=== PATIENT | male | born 1980 | race Caucasian/White ===

== ENCOUNTER → 2016-11-22 | Outpatient (CLI) | payer OTHER ==
[~2016-11-22] MED LIST: METHACHOLINE KIT (J7674) INH ONE
--- NOTE | 2016-11-22 11:02 | PFTRPT ---
Tech: Alicia MARRERO RRT Age: 35 Sex: Male Race: Black Height: 74.00 Inches Weight: 232.00 Lbs BSA: 2.31 Diagnosis: R06.02 METHACHOLINE CHALLENGE REPORT: ORDERING PROVIDER: LIA Sagastume DATE OF SERVICE: 11/22/16 INTERPRETATION: The study was of excellent technical quality. Under protocol, methacholine was administered. Data acquisition is somewhat hampered by cough. At a dose of 2.5 mg (13.8575 CDUs), a 39% decline in the FEV1 was noted. The PC20 of 0.62 is significant. Flow rates returned to baseline post bronchodilator administration. IMPRESSION: Positive methacholine challenge study. MTDD
== END ==
LOC: M CARPUL 09:59
PROVIDERS: ATTEND Nurse Practitioner Adult Health
DX: R06.02 Shortness of breath (principal)
CPT/HCPCS: 94070; J7674

== ENCOUNTER 2017-07-13 14:42 | Emergency (ER) | payer OTHER ==
[2017-07-13 15:27] LABS: BASO % 0.4 % (0.0-1.0); EOS # 0.2 10^3/uL (0.0-0.50); EOS % 4.3 % (0.0-3.0); HEMATOCRIT 38.6 % (42.0-52.0); HEMOGLOBIN 13.2 g/dl (13.5-17.5); IMMATURE GRANULOCYTE % 0.2 % (0-3.0); LYMPH # 1.7 10^3/uL (1.5-4.5); LYMPH % 34.3 % (24.0-44.0); MEAN CORPUSCULAR HEMOGLOBIN 30.8 pg (27.0-33.0); MEAN CORPUSCULAR HGB CONC 34.2 g/dl (32.0-36.5); MONO # 0.5 10^3/uL (0.0-0.8); MONO % 9.7 % (0.0-5.0); NEUTROPHILS # 2.5 10^3/uL (1.8-7.7); NEUTROPHILS % 51.1 % (36.0-66.0); PLATELET COUNT, AUTOMATED 170 10^3/uL (150-450); RED BLOOD COUNT 4.29 10^6/uL (4.30-6.10); WHITE BLOOD COUNT 4.9 10^3/uL (4.0-10.0)
[2017-07-13 15:41] LABS: ANION GAP 5 MEQ/L (8-16); BLOOD UREA NITROGEN 15 MG/DL (7-18); CALCIUM LEVEL 8.6 MG/DL (8.5-10.1); CARBON DIOXIDE LEVEL 27 MEQ/L (21-32); CHLORIDE LEVEL 108 MEQ/L (98-107); CK-MB VALUE MASS 2.7 NG/ML (<3.6); CPK CREATINE PHOSPHOKINASE 553 U/L (39-308); CREATININE FOR GFR 1.22 MG/DL (0.70-1.30); GLOMERULAR FILTRATION RATE > 60.0 (>60); GLUCOSE, FASTING 93 MG/DL (70-100); MB/CK RELATIVE INDEX 0.48 (< OR =4); POTASSIUM SERUM 3.6 MEQ/L (3.5-5.1); SODIUM LEVEL 140 MEQ/L (136-145); TROPONIN I < 0.02 NG/ML (< 0.10)
[2017-07-13] MEDS: ONDANSETRON 4MG/2ML VIAL (J2405) IV (16:01)
[2017-07-13] MEDS: MORPHINE 2 MG/ML 1ML SYRINGE (J2270) IV (16:02)
== END 2017-07-13 16:40 | disposition home or self-care (01) ==
LOC: M ED 14:42
DX: R07.89 Other chest pain (principal); R00.1 Bradycardia, unspecified; J45.909 Unspecified asthma, uncomplicated; Z82.49 Family history of ischemic heart disease and other diseases of the circulatory system; Z79.899 Other long term (current) drug therapy
CPT/HCPCS: J2405

== ENCOUNTER 2018-02-20 19:14 | Inpatient (IN) | payer OTHER ==
[2018-02-20] MEDS ORDERED: PROPOFOL 1,000 MG/100 ML VIAL As Ordered ×2 (19:19→20:36)
[2018-02-20] MEDS: SODIUM BICARBONATE 150 MEQ in D5W 1,000 ML IV (20:00)
[2018-02-20] MEDS: POTASSIUM CHLORIDE 10 MEQ SR TABLET PO (20:01)
[2018-02-20] MEDS: CHARCOAL ACTIVATED LIQUID 25 GM/120 ML BTL PO (20:01)
[2018-02-20] MEDS ORDERED: SODIUM BICARBONATE 8.4% INJ 50 ML SYRINGE As Ordered (20:05)
[2018-02-20 20:15] LABS: BASO % 0.9 % (0.0-1.0); EOS # 0.2 10^3/uL (0.0-0.50); HEMATOCRIT 43.2 % (42.0-52.0); HEMOGLOBIN 14.3 g/dl (13.5-17.5); IMMATURE GRANULOCYTE % 0.2 % (0-3.0); LYMPH # 1.7 10^3/uL (1.5-4.5); LYMPH % 37.3 % (24.0-44.0); MEAN CORPUSCULAR HEMOGLOBIN 30.5 pg (27.0-33.0); MEAN CORPUSCULAR HGB CONC 33.1 g/dl (32.0-36.5); MEAN CORPUSCULAR VOLUME 92.1 fl (80.0-96.0); MONO # 0.4 10^3/uL (0.0-0.8); MONO % 8.2 % (0.0-5.0); NEUTROPHILS # 2.2 10^3/uL (1.8-7.7); NEUTROPHILS % 48.4 % (36.0-66.0); PLATELET COUNT, AUTOMATED 196 10^3/uL (150-450); RED BLOOD COUNT 4.69 10^6/uL (4.30-6.10); RED CELL DISTRIBUTION WIDTH 12.9 % (11.5-14.5); WHITE BLOOD COUNT 4.6 10^3/uL (4.0-10.0)
[2018-02-20 20:21] LABS: ABG HCO3 22.9 MEQ/L (22.0-26.0); ABG O2 SATURATION 99.2 % (95.0-99.0); ABG PARTIAL PRESSURE CO2 44.2 mmHg (35.0-45.0); ABG PARTIAL PRESSURE O2 186.2 mmHg (75.0-100.0); ABG TOTAL CO2 24.3 MEQ/L (22.0-29.0); ABG pH (ARTERIAL) 7.333 UNITS (7.350-7.450)
[2018-02-20 20:26] LABS: ALBUMIN 3.7 GM/DL (3.2-5.2); ALBUMIN/GLOBULIN RATIO 1.16 (1.00-1.93); ALKALINE PHOSPHATASE 67 U/L (45-117); ALT/SGPT 19 U/L (12-78); ANION GAP 7 MEQ/L (8-16); AST/SGOT 19 U/L (7-37); BILIRUBIN,DIRECT 0.2 MG/DL (0.0-0.2); BILIRUBIN,TOTAL 0.5 MG/DL (0.2-1.0); BLOOD UREA NITROGEN 10 MG/DL (7-18); CALCIUM LEVEL 8.5 MG/DL (8.5-10.1); CARBON DIOXIDE LEVEL 27 MEQ/L (21-32); CHLORIDE LEVEL 108 MEQ/L (98-107); CREATININE FOR GFR 1.42 MG/DL (0.70-1.30); ETHYL ALCOHOL (ETHANOL) 0.058 % (0.000-0.010); GLOMERULAR FILTRATION RATE > 60.0 (>60); GLUCOSE, FASTING 74 MG/DL (70-100); POTASSIUM SERUM 3.8 MEQ/L (3.5-5.1); SALICYLATE LEVEL < 1.7 MG/DL (5.0-30.0); SODIUM LEVEL 142 MEQ/L (136-145); TOTAL PROTEIN 6.9 GM/DL (6.4-8.2)
[2018-02-20 20:27] LABS: ACETAMINOPHEN LEVEL < 2.0 UG/ML (10.0-30.0)
[2018-02-20 20:35] LABS: AMPHETAMINES LEVEL URINE NEGATIVE (NEGATIVE); BARBITURATES URINE NEGATIVE (NEGATIVE); BENZODIAZEPINES URINE NEGATIVE (NEGATIVE); CANNABINOIDS URINE NEGATIVE (NEGATIVE); COCAINE METABOLITE URINE NEGATIVE (NEGATIVE); METHADONE URINE NEGATIVE (NEGATIVE); OPIATES URINE NEGATIVE (NEGATIVE); PHENCYCLIDINE URINE NEGATIVE (NEGATIVE)
[2018-02-20 20:55] LABS: OSMOLALITY SERUM 303 MOSM/KG (275-295)
[2018-02-20] MEDS: PROPOFOL 1,000 MG in APPROPRIATE DILUENT 1 EA IV (22:22)
[2018-02-20 22:51] LABS: ABG BASE EXCESS -1.8 (-2.0-2.0); ABG HCO3 23.5 MEQ/L (22.0-26.0); ABG O2 SATURATION 99.6 % (95.0-99.0); ABG PARTIAL PRESSURE CO2 41.6 mmHg (35.0-45.0); ABG PARTIAL PRESSURE O2 212.4 mmHg (75.0-100.0); ABG TOTAL CO2 24.7 MEQ/L (22.0-29.0); ABG pH (ARTERIAL) 7.369 UNITS (7.350-7.450)
[2018-02-20] MEDS ORDERED: SUCCINYLCHOLINE 100 MG/5 ML SYRINGE (J0330) (23:48)
[2018-02-20] MEDS ORDERED: ETOMIDATE INJ 20MG/10ML VIAL (23:48)
[2018-02-21] MEDS: PROPOFOL 1,000 MG in APPROPRIATE DILUENT 1 EA IV ×4 (00:38→06:42)
[2018-02-21] MEDS: MIDAZOLAM INJ 2 MG/2 ML VIAL (J2250) IV (03:11)
[2018-02-21 05:23] LABS: HEMATOCRIT 39.2 % (42.0-52.0); HEMOGLOBIN 13.1 g/dl (13.5-17.5); MEAN CORPUSCULAR HEMOGLOBIN 30.7 pg (27.0-33.0); MEAN CORPUSCULAR HGB CONC 33.4 g/dl (32.0-36.5); MEAN CORPUSCULAR VOLUME 91.8 fl (80.0-96.0); PLATELET COUNT, AUTOMATED 169 10^3/uL (150-450); RED BLOOD COUNT 4.27 10^6/uL (4.30-6.10); WHITE BLOOD COUNT 7.8 10^3/uL (4.0-10.0)
[2018-02-21 05:49] LABS: ALBUMIN 3.1 GM/DL (3.2-5.2); ALBUMIN/GLOBULIN RATIO 1.03 (1.00-1.93); ALKALINE PHOSPHATASE 58 U/L (45-117); ALT/SGPT 16 U/L (12-78); ANION GAP 8 MEQ/L (8-16); AST/SGOT 20 U/L (7-37); BILIRUBIN,TOTAL 0.4 MG/DL (0.2-1.0); BLOOD UREA NITROGEN 8 MG/DL (7-18); CALCIUM LEVEL 7.9 MG/DL (8.5-10.1); CARBON DIOXIDE LEVEL 26 MEQ/L (21-32); CHLORIDE LEVEL 109 MEQ/L (98-107); CREATININE FOR GFR 1.18 MG/DL (0.70-1.30); GLOMERULAR FILTRATION RATE > 60.0 (>60); GLUCOSE, FASTING 109 MG/DL (70-100); MAGNESIUM LEVEL 1.9 MG/DL (1.8-2.4); PHOSPHORUS LEVEL 2.7 MG/DL (2.5-4.9); POTASSIUM SERUM 3.6 MEQ/L (3.5-5.1); SODIUM LEVEL 143 MEQ/L (136-145); TOTAL PROTEIN 6.1 GM/DL (6.4-8.2)
[2018-02-21 06:17] LABS: ABG BASE EXCESS -1.5 (-2.0-2.0); ABG HCO3 23.9 MEQ/L (22.0-26.0); ABG O2 SATURATION 98.5 % (95.0-99.0); ABG PARTIAL PRESSURE CO2 42.6 mmHg (35.0-45.0); ABG STANDARD HCO3 23.2 MEQ/L (22.0-26.0); ABG TOTAL CO2 25.2 MEQ/L (22.0-29.0); ABG pH (ARTERIAL) 7.366 UNITS (7.350-7.450)
[2018-02-21] MEDS: PANTOPRAZOLE 40MG INJ (PROTONIX) (C9113) IV (08:31)
[2018-02-21] MEDS: ENOXAPARIN 40 MG/0.4 ML SYRINGE (J1650) SC (08:32)
[2018-02-21] MEDS: CHLORHEXIDINE GLUCONATE 0.12 % 15ML UDC (PERIDEX ORAL RINSE) MT (08:32)
[2018-02-21] MEDS ORDERED: IPRATROPIUM 0.5MG/ALBUTEROL 2.5MG INH SOL UD 3ML (DUONEB)(J7620) NEB (10:45)
[2018-02-21] MEDS ORDERED: traZODone 50 MG TAB PO (12:15)
== END 2018-02-21 16:22 | disposition home or self-care (01) | DRG 917 ==
LOC: M ED 19:14 → M ED INP 21:45 → M ICU 22:34
DX: T43.014A Poisoning by tricyclic antidepressants, undetermined, initial encounter (principal); G93.41 Metabolic encephalopathy; N17.9 Acute kidney failure, unspecified; J45.909 Unspecified asthma, uncomplicated; F32.9 Major depressive disorder, single episode, unspecified; Z79.899 Other long term (current) drug therapy

== ENCOUNTER 2018-02-22 11:31 | Inpatient (IN) | payer OTHER ==
[~2018-02-22] VITALS: Ht 188 cm; Wt 106.0 kg
[2018-02-22] MEDS: SERTRALINE HCL 50 MG TAB PO SCH (09:00)
[~2018-02-22 11:31] MED LIST changes: +ADV250INH INH; +FLON1SPR; +IBUP-1022 PO; +MAXA5TAB11 PO; +MED REC COMMENT; -METHACHOLINE KIT (J7674) INH ONE; +NICOTINE 21MG/24HR 1 EA TRANSDERMAL TD SCH; +NORT25CA2 PO; +VITA100066 PO
[2018-02-22] MEDS ORDERED: VITA200016 PO (11:58)
[2018-02-22] MEDS ORDERED: PROAAER10 INH (12:15)
[2018-02-22] MEDS ORDERED: VITA100066 PO (12:15)
[2018-02-22 13:23] LABS: HEMATOCRIT 39.7 % (42.0-52.0); HEMOGLOBIN 13.1 g/dl (13.5-17.5); MEAN CORPUSCULAR HEMOGLOBIN 30.7 pg (27.0-33.0); PLATELET COUNT, AUTOMATED 182 10^3/uL (150-450); RED BLOOD COUNT 4.27 10^6/uL (4.30-6.10); WHITE BLOOD COUNT 6.4 10^3/uL (4.0-10.0)
[2018-02-22 13:41] LABS: AMPHETAMINES LEVEL URINE NEGATIVE (NEGATIVE); BARBITURATES URINE NEGATIVE (NEGATIVE); BENZODIAZEPINES URINE NEGATIVE (NEGATIVE); CANNABINOIDS URINE NEGATIVE (NEGATIVE); COCAINE METABOLITE URINE NEGATIVE (NEGATIVE); METHADONE URINE NEGATIVE (NEGATIVE); OPIATES URINE NEGATIVE (NEGATIVE); PHENCYCLIDINE URINE NEGATIVE (NEGATIVE)
[2018-02-22 13:59] LABS: ACETAMINOPHEN LEVEL < 2.0 UG/ML (10.0-30.0); ALBUMIN 3.6 GM/DL (3.2-5.2); ALT/SGPT 18 U/L (12-78); BILIRUBIN,DIRECT 0.1 MG/DL (0.0-0.2); BILIRUBIN,TOTAL 0.5 MG/DL (0.2-1.0); BLOOD UREA NITROGEN 13 MG/DL (7-18); CALCIUM LEVEL 8.1 MG/DL (8.5-10.1); CARBON DIOXIDE LEVEL 29 MEQ/L (21-32); CHLORIDE LEVEL 109 MEQ/L (98-107); CREATININE FOR GFR 1.39 MG/DL (0.70-1.30); ETHYL ALCOHOL (ETHANOL) < 0.003 % (0.000-0.010); GLOMERULAR FILTRATION RATE > 60.0 (>60); GLUCOSE, FASTING 84 MG/DL (70-100); POTASSIUM SERUM 3.8 MEQ/L (3.5-5.1); SALICYLATE LEVEL < 1.7 MG/DL (5.0-30.0); SODIUM LEVEL 143 MEQ/L (136-145); TOTAL PROTEIN 6.6 GM/DL (6.4-8.2)
[2018-02-22] MEDS ORDERED: ACETAMINOPHEN TAB 650MG DOSE (2X325MG) PO PRN (14:30)
[2018-02-22] MEDS ORDERED: MAALOX 30 ML SUSP *UDC PO PRN (14:30)
[2018-02-22] MEDS ORDERED: MOM 30ML SUSPENSION UDC PO PRN (14:30)
[2018-02-22 15:11] VITALS: BP 142/90
--- NOTE | 2018-02-22 15:38 | HPEPDOC ---
[facility] Medical History & Physical Date of Admission Feb 22, 2018 History and Physical PCP: [facility] ATTENDING: Dr. Lauren Negron HPI: 37yoM admitted to [facility] for depressive disorder, being medically examined today. The pt was recently admitted to [facility] 02/20/18-02/21/18 related to TCA OD. No acute medical complaints today. Denies any fevers, chills, weakness, fatigue, CHANDRA, CP, SOB, cough, palpitations, abdominal pain, N/V/D or changes in bowel or bladder habits. PMHx: Anxiety depression TCA OD 02/20/18 Asthma PSHX: wisdom teeth extraction SOCHX: Resides in: [facility], from [place] Marital Status: Kids: none Employment: active duty Tobacco use: denies ETOH: denies Illicit Drugs: Denies IV Drug Use: Denies Tattoos done unprofessionally: Denies FAMHX: Mother: Alive, Myasthenia gravis Father: Alive, heart disease Siblings: 2 brothers Alive, well Children: none Unexpected deaths due to medical reasons: None. ROS: As noted in HPI, otherwise 11pt ROS of systems reviewed and unremarkable. PE: GEN: 37yoM, appears stated age. Well-nourished, well developed. No acute distress. Alert and oriented x 3. Pleasant, interactive. HEENT: Normocephalic, atraumatic. Pupils are equal, round, and reactive to light. Extraocular movements are intact. No nystagmus appreciated. Sclera are nonicteric. Conjunctiva without injection. Nose midline. Nasal turbinates without bogginess. EACs both patent BL. TMs both visualized and marquez with good cone of light, no bulging or erythema. No facial asymmetry. Moist mucous membranes. Dentition fair. Pharynx pink and moist, no cobblestoning. Neck supple, trachea midline. No lymphadenopathy or thyromegaly appreciated. CHEST: Regular rate and rhythm, +S1, +S2 LUNGS: Clear to auscultation bilaterally. No wheezes, rales, or rhonchi. Breathing appears symmetric and easy. Patient is speaking in full sentences. No accessory muscle use. ABD: Round, soft, non-tender, non-distended. +Bowel sounds throughout. No rebound or guarding. No costovertebral angle tenderness. EXT: Pulses 2+ bilaterally dorsalis pedis and radial. No lower extremity edema appreciated. SKIN: Hope, dry, warm. Capillary refill <2sec. No rashes. NEURO: Alert and oriented x 3. Cranial nerves III-XII are intact. No focal deficits appreciated. EKG:pending A&P: 37yoM admitted to [facility] for depressive disorder 1. Psych. Plan per Psychiatry. Obtain baseline EKG to assure the safety of ps ychiatric medications as they can prolong the QT interval. 2. Elevated SCr. Recent MILDRED noted 02/20/18 admission. Unknown baseline. SCr 1.18 at time of D/C 02/21/18. SCr 1.38. Recheck in AM. 3. Asthma. Continue albuterol HFA as needed. 4. Follow up with PCP on discharge. 5. Staff member Susan ORTEGA present throughout exam. Vital Signs Vital Signs Date Time Temp Pulse Resp B/P (MAP) Pulse Ox O2 Delivery O2 Flow Rate FiO2 02/22/18 11:57 97.8 75 18 123/77 (92) 100 Room Air Laboratory Data Labs 24H Laboratory Tests 2 02/22/18 12:41: Nucleated Red Blood Cells % (auto) 0.0, Anion Gap 5L, Glomerular Filtration Rate > 60.0, Calcium Level 8.1L, Aspartate Amino Transf (AST/SGOT) 16, Alanine Aminotransferase (ALT/SGPT) 18, Alkaline Phosphatase 82, Total Bilirubin 0.5, Direct Bilirubin 0.1, Total Protein 6.6, Albumin 3.6, Albumin/Globulin Ratio 1.20, Thyroid Stimulating Hormone (TSH) 2.640, Salicylates Level < 1.7L, Urine Amphetamines Screen NEGATIVE, Urine Benzodiazepines Screen NEGATIVE, Urine Opiates Screen NEGATIVE, Urine Methadone Screen NEGATIVE, Acetaminophen Level < 2.0L, Urine Barbiturates Screen NEGATIVE, Urine Phencyclidine Screen NEGATIVE, Urine Cocaine Metabolite Screen NEGATIVE, Urine Cannabinoids Screen NEGATIVE, Ethyl Alcohol Level < 0.003 CBC/BMP Laboratory Tests 02/22/18 12:41 Red Blood Count 4.27 L, Mean Corpuscular Volume 93.0, Mean Corpuscular Hemoglobin 30.7, Mean Corpuscular Hemoglobin Concent 33.0, Red Cell Distribution Width 13.3 Home Medications Scheduled Cholecalciferol (Vitamin D) 1,000 Unit Tab, 1,000 UNIT PO DAILY Scheduled PRN Albuterol Sulfate (Proair Hfa) 108 Mcg/Act Aer, 2 PUFF INH Q4H PRN for SHORTNESS OF BREATH Allergies Coded Allergies: No Known Allergies (Unverified , 11/18/16) Bridget Schafer Feb 22, 2018 15:38
[2018-02-22] MEDS ORDERED: ALBUTEROL 90 MCG/ACT 8GM HFA INHALER INH PRN (15:45)
[2018-02-23 06:38] LABS: HEMATOCRIT 41.5 % (42.0-52.0); HEMOGLOBIN 13.5 g/dl (13.5-17.5); MEAN CORPUSCULAR HEMOGLOBIN 30.4 pg (27.0-33.0); MEAN CORPUSCULAR HGB CONC 32.5 g/dl (32.0-36.5); MEAN CORPUSCULAR VOLUME 93.5 fl (80.0-96.0); PLATELET COUNT, AUTOMATED 178 10^3/uL (150-450); RED BLOOD COUNT 4.44 10^6/uL (4.30-6.10); WHITE BLOOD COUNT 6.8 10^3/uL (4.0-10.0)
[2018-02-23 06:44] VITALS: BP 133/84
[2018-02-23 06:51] LABS: BLOOD UREA NITROGEN 14 MG/DL (7-18); CALCIUM LEVEL 8.5 MG/DL (8.5-10.1); CARBON DIOXIDE LEVEL 28 MEQ/L (21-32); CHLORIDE LEVEL 107 MEQ/L (98-107); CREATININE FOR GFR 1.34 MG/DL (0.70-1.30); GLOMERULAR FILTRATION RATE > 60.0 (>60); GLUCOSE, FASTING 91 MG/DL (70-100); SODIUM LEVEL 143 MEQ/L (136-145)
[2018-02-23] MEDS: SERTRALINE HCL 50 MG TAB PO SCH (09:00)
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
[2018-02-23 18:17] VITALS: BP 128/76
[2018-02-24 06:29] VITALS: BP 128/94
[2018-02-24 07:27] LABS: BLOOD UREA NITROGEN 10 MG/DL (7-18); CALCIUM LEVEL 8.5 MG/DL (8.5-10.1); CARBON DIOXIDE LEVEL 31 MEQ/L (21-32); CHLORIDE LEVEL 102 MEQ/L (98-107); CREATININE FOR GFR 1.27 MG/DL (0.70-1.30); GLOMERULAR FILTRATION RATE > 60.0 (>60); GLUCOSE, FASTING 88 MG/DL (70-100); POTASSIUM SERUM 3.6 MEQ/L (3.5-5.1); SODIUM LEVEL 139 MEQ/L (136-145)
[2018-02-24 08:37] VITALS: BP 128/80
[2018-02-24] MEDS: SERTRALINE HCL 50 MG TAB PO SCH (09:00)
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
[2018-02-24 18:00] VITALS: BP 118/60
[2018-02-25 06:34] VITALS: BP 138/98
[2018-02-25] MEDS: SERTRALINE HCL 50 MG TAB PO SCH (08:08)
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
[2018-02-25 18:00] VITALS: BP 126/79
[2018-02-26 06:38] VITALS: BP 135/81
[2018-02-26] MEDS: SERTRALINE HCL 50 MG TAB PO SCH (08:34)
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
[2018-02-26 18:00] VITALS: BP 122/57
[2018-02-27 06:41] VITALS: BP 138/80
[2018-02-27] MEDS: SERTRALINE HCL 50 MG TAB PO SCH (08:46)
[2018-02-27 18:00] VITALS: BP 123/75
[2018-02-28 07:00] VITALS: BP 132/68
--- NOTE | 2018-02-28 08:44 | MHDSPDOC ---
[facility] Discharge Summary Discharge Summary DATE OF ADMISSION: Feb 22, 2018 at 2:16 pm DATE OF DISCHARGE: Feb 28, 2018 DISCHARGE DIAGNOSES: 1. Depression Unspecified 2. R/O adjustment d/o with anxiety/depression REASON FOR ADMISSION: Patient is a 37 -year-old , AD, male, with no known previous psych history who [facility] after being referred by [facility] as pt just discharged from ICU s/p OD on 35 Nortriptyline 25mg on 02/21/18. Pt was seen for consult during his ICU admission in which he was not cleared by myself to be discharged but medical discharged him home without contacting me after sitter d/c as pt felt safe in the hospital. When pt seen in ICU for consult he stated per consult note that "he took OD of nortriptyline as SA after an argument with his . He states that lately his marriage has been difficult as he and his are arguing frequently. States he's been going to a therapist and psychiatrist at [facility] w [facility] has been helpful during this time but just impulsively took the OD 02/19 as he was feeling depressed in the moment. Denies overt depression currently, states his has been supportive since OD, and states he's glad he's alive today and regrets his OD. Denies SI/HI, hallucinations, delusions and states he will not harm himself and does not need a sitter anymore. States he feels safe in the hospital. States he would like marriage counseling in the future as he thinks it will be beneficial for his marriage. Denies problems at work and states things have been going well." Pt seen at [facility] at sent to [facility] ED yesterday as [facility] concerned regarding pt recent OD as it required intubation/ICU treatment, and was potentially lethal (35 TCAs). In ED pt denies SI since his OD. Pt seen and continues to deny SI, remorse over OD, and states he will never do anything like that again as he has learned his lesson and doesn't want to . States things have been difficult within his marriage and his never listens to him, "take the time to get to know me," States he's asked his to go to marital counseling with him in the past but she refuses. States she has mental health problems, history of SA but refuses to get help for it. States that when he took OD he did it in front of his while they were fighting and states she "told me to do it." States he didn't think it would be harmful to him as he didn't know the lethality of TCAs and now realizes who serious his OD was and completely regrets it, glad to be alive today. Future oriented and greatly looking forward to going to [place] next month [place] train for a month as he enjoys i t. Encouraged next time he and his are fighting that if things get bad and feeling overly stressed to leave the fight and go do something else like run, walk, go to gym, go to friends, etc... He agrees and will do. CONSULTANTS INVOLVED: none TREATMENT AND PROGRESS ON THE UNIT : Pt was admitted to [facility], seen for psychiatric assessment and and started on zoloft 50mg daily that he found beneficial for his mood and tolerated well. He was provided trazodone 50mg qhs prn insomnia. He attended groups daily during his stay. His symptoms improved with treatment. On day of discharge he denied depression, anxiety, insomnia, SI/HI, hallucinations, delusions. He was discharged home after [facility] meeting with follow-up at [facility]. He felt safe for discharge. DISCHARGE ASSESSMENT: Pt seen and states that his mood is good. States he's tolerating his zoloft and finding it beneficial. States things are getting better between the two of them and she's being supportive which is good. States he slept well last night. He is attending groups and finding them helpful. He denies depression, anxiety, insomnia, SI/HI, hallucinations, delusions. Pt feels safe to be discharged home today with his [facility]. MENTAL STATUS EXAMINATION ON DISCHARGE: General Appearance: well groomed, appears stated age, hospital scrubs/clothing Build: average Demeanor: average Eye Contact: average Activity: average Behavior: cooperative Speech: clear, spontaneous, normal volume, reg/rate,rhythm,volume Mood: euthymic Mood good Affect: full, appropriate, congruent Thought Process: logical/linear, intact Thought Content (Delusions): none reported, denies SI, HI, AVH Thought Content (Other): none reported, appropriate Thought Content (Aggressive): none reported Perception (Hallucinations): none reported Perception (Other): none reported Cognition (Impairment of): none reported Cognition(Intelligence Est.): average Oriented: Awake, Alert, Oriented times three Insight: good Judgment: Good Psychosis: Denies MEDICATIONS ON DISCHARGE: trazodone 50mg qhs prn insomnia PLAN/FOLLOWUP ARRANGEMENTS: D/c home with [facility] with follow-up at [facility]. The amount of time spent in the coordination of care for this patient was approximately 30 minutes. Vital Signs/I&Os Vital Signs Date Time Temp Pulse Resp B/P (MAP) Pulse Ox O2 Delivery O2 Flow Rate FiO2 02/28/18 07:00 97.6 70 16 132/68 (89) 02/22/18 15:11 Room Air 02/22/18 11:57 100 Medications Scheduled Cholecalciferol (Vitamin D) 1,000 Unit Tab, 1,000 UNIT PO DAILY, (Reported) Sertraline Hcl (Sertraline HCl) 50 Mg Tab, 50 MG PO DAILY for mood, #10 Scheduled PRN Albuterol Sulfate (Proair Hfa) 108 Mcg/Act Aer, 2 PUFF INH Q4H PRN for SHORTNESS OF BREATH, (Reported) Trazodone HCl (Trazodone HCl) 50 Mg Tab, 50 MG PO QPM PRN for INSOMNIA for 30 Days, #10 Allergies Coded Allergies: No Known Allergies (Unverified , 11/18/16) JORGE ALBERTO MENDIETA DO Feb 28, 2018 8:44 am
[2018-02-28] MEDS ORDERED: TRAZ-160 PO (08:46)
[2018-02-28] MEDS ORDERED: SERT50TA PO (08:46)
[2018-02-28] MEDS: SERTRALINE HCL 50 MG TAB PO SCH (09:00)
== END 2018-02-28 11:50 | disposition home or self-care (01) | DRG 881 ==
LOC: M ED 11:31 → M ED INP 14:16 → M PSY 15:07
PROVIDERS: ADMIT Psychiatry & Neurology Psychiatry; ATTEND Psychiatry & Neurology Psychiatry
DX: F32.9 Major depressive disorder, single episode, unspecified (principal); Z91.5 Personal history of self-harm; J45.909 Unspecified asthma, uncomplicated; F43.23 Adjustment disorder with mixed anxiety and depressed mood

== ENCOUNTER → 2018-03-08 | Outpatient (CLI) | payer OTHER ==
[~2018-03-08] MED LIST changes: -NICOTINE 21MG/24HR 1 EA TRANSDERMAL TD SCH; +PROAAER10 INH; +PROHANCE 279.3MG/ML 15ML VIAL (A9576) As Ordered ONE; +PROHANCE 279.3MG/ML 5ML VIAL (A9576) As Ordered ONE; +SERT50TA PO; +TRAZ-160 PO; +VITA200016 PO
--- NOTE | 2018-03-08 12:56 | REP ---
MR BRAIN WITH CONTRAST: HISTORY: Left temporal lobe lesion. CONTRAST: ProHance 20 mL. A small 8 mm focus of mixed decreased and increased signal intensity is present in the anterior left temporal lobe. There is no surrounding edema or mass effect. This represents a cavernous hemangioma. A small developmental venous anomaly is present adjacent to the cavernous hemangioma. The developmental venous anomaly drains into the deep venous system. A single punctate focus of increased signal intensity on T2-weighted images is present in the subcortical white matter of the right parietal lobe. There is no acute intraparenchymal hemorrhage, infarct, or midline shift. The ventricular system is normal in appearance. There is no extracerebral collection. Mucosal thickening is present in the sphenoid sinus. IMPRESSION: 1. There is a small 8 mm left temporal lobe cavernous hemangioma with an associated adjacent developmental venous anomaly. 2. There is a single punctate focus of increased signal intensity in the subcortical white matter of the right parietal lobe. This is a nonspecific finding. Electronically Signed by Edvin Medellin MD 03/08/2018 01:25 P
== END ==
LOC: M RAD 09:59
PROVIDERS: ATTEND Family Medicine
DX: R93.0 Abnormal findings on diagnostic imaging of skull and head, not elsewhere classified (principal)
CPT/HCPCS: 70552; A9576

== ENCOUNTER 2018-03-21 10:34 | Inpatient (IN) | payer OTHER ==
[~2018-03-21] VITALS: Ht 188 cm; Wt 106.5 kg
[~2018-03-21 10:34] MED LIST changes: -PROHANCE 279.3MG/ML 15ML VIAL (A9576) As Ordered ONE; -PROHANCE 279.3MG/ML 5ML VIAL (A9576) As Ordered ONE
[2018-03-21 12:01] LABS: HEMOGLOBIN 13.5 g/dl (13.5-17.5); MEAN CORPUSCULAR HEMOGLOBIN 30.4 pg (27.0-33.0); MEAN CORPUSCULAR HGB CONC 32.9 g/dl (32.0-36.5); MEAN CORPUSCULAR VOLUME 92.3 fl (80.0-96.0); PLATELET COUNT, AUTOMATED 190 10^3/uL (150-450); RED BLOOD COUNT 4.44 10^6/uL (4.30-6.10); WHITE BLOOD COUNT 5.8 10^3/uL (4.0-10.0)
[2018-03-21 12:26] LABS: AMPHETAMINES LEVEL URINE NEGATIVE (NEGATIVE); BARBITURATES URINE NEGATIVE (NEGATIVE); BENZODIAZEPINES URINE NEGATIVE (NEGATIVE); CANNABINOIDS URINE NEGATIVE (NEGATIVE); COCAINE METABOLITE URINE NEGATIVE (NEGATIVE); METHADONE URINE NEGATIVE (NEGATIVE); OPIATES URINE NEGATIVE (NEGATIVE); PHENCYCLIDINE URINE NEGATIVE (NEGATIVE)
[2018-03-21 12:43] LABS: ACETAMINOPHEN LEVEL < 2.0 UG/ML (10.0-30.0); ALBUMIN 3.9 GM/DL (3.2-5.2); ALT/SGPT 29 U/L (12-78); BILIRUBIN,DIRECT 0.2 MG/DL (0.0-0.2); BILIRUBIN,TOTAL 0.6 MG/DL (0.2-1.0); BLOOD UREA NITROGEN 20 MG/DL (7-18); CALCIUM LEVEL 8.5 MG/DL (8.5-10.1); CARBON DIOXIDE LEVEL 26 MEQ/L (21-32); CHLORIDE LEVEL 106 MEQ/L (98-107); CREATININE FOR GFR 1.32 MG/DL (0.70-1.30); ETHYL ALCOHOL (ETHANOL) < 0.003 % (0.000-0.010); GLOMERULAR FILTRATION RATE > 60.0 (>60); GLUCOSE, FASTING 87 MG/DL (70-100); POTASSIUM SERUM 4.4 MEQ/L (3.5-5.1); SALICYLATE LEVEL < 1.7 MG/DL (5.0-30.0); SODIUM LEVEL 139 MEQ/L (136-145); TOTAL PROTEIN 7.1 GM/DL (6.4-8.2)
[2018-03-21] MEDS ORDERED: MOM 30ML SUSPENSION UDC PO PRN (15:00)
[2018-03-21] MEDS ORDERED: ACETAMINOPHEN TAB 650MG DOSE (2X325MG) PO PRN (15:00)
[2018-03-21] MEDS ORDERED: MAALOX 30 ML SUSP *UDC PO PRN (15:00)
[2018-03-21] MEDS ORDERED: traZODone 50 MG TAB PO PRN (15:00)
[2018-03-21 17:49] VITALS: BP 135/77
[2018-03-22 06:34] VITALS: BP 146/86
--- NOTE | 2018-03-22 09:24 | HPEPDOC ---
[facility] Medical History & Physical Date of Admission Mar 21, 2018 History and Physical PCP: [facility] ATTENDING: Dr. Lauren Negron HPI: 37yoM admitted to [facility] for depressive disorder, being medically examined today. No acute medical complaints today. Denies any fevers, chills, weakness, fatigue, CHANDRA, CP, SOB, cough, palpitations, abdominal pain, N/V/D or changes in bowel or bladder habits. PMHx: Anxiety depression H/O SI/HI H/O SA. TCA OD 02/20/18 TBI. Follows with TBI clinic [facility]. Asthma PSHX: wisdom teeth extraction SOCHX: Resides in: [facility], from [place] Marital Status: Kids: none Employment: active duty Tobacco use: denies ETOH: denies Illicit Drugs: Denies IV Drug Use: Denies Tattoos done unprofessionally: Denies FAMHX: Mother: Alive, Myasthenia gravis Father: Alive, heart disease Siblings: 2 brothers Alive, well Children: none Unexpected deaths due to medical reasons: None. ROS: As noted in HPI, otherwise 11pt ROS of systems reviewed and unremarkable. PE: GEN: 37yoM, appears stated age. Well-nourished, well developed. No acute distress. Alert and oriented x 3. Pleasant, interactive. HEENT: Normocephalic, atraumatic. Pupils are equal, round, and reactive to light. Extraocular movements are intact. No nystagmus appreciated. Sclera are nonicteric. Conjunctiva without injection. Nose midline. Nasal turbinates without bogginess. EACs both patent BL. TMs both visualized and marquez with good cone of light, no bulging or erythema. No facial asymmetry. Moist mucous membra shelia. Dentition fair. Pharynx pink and moist, no cobblestoning. Neck supple, trachea midline. No lymphadenopathy or thyromegaly appreciated. CHEST: Regular rate and rhythm, +S1, +S2 LUNGS: Clear to auscultation bilaterally. No wheezes, rales, or rhonchi. Breathing appears symmetric and easy. Patient is speaking in full sentences. No accessory muscle use. ABD: Round, soft, non-tender, non-distended. +Bowel sounds throughout. No rebound or guarding. No costovertebral angle tenderness. EXT: Pulses 2+ bilaterally dorsalis pedis and radial. No lower extremity edema appreciated. SKIN: [place], dry, warm. Capillary refill <2sec. No rashes. NEURO: Alert and oriented x 3. Cranial nerves III-XII are intact. No focal deficits appreciated. EKG: SINUS RHYTHM ST ELEVATION, PROBABLY EARLY REPOLARIZATION INF T ABN SIMILAR TO 07/13/17 Electronically Signed On 02-21-2018 9:12:37 EST by Mesha Contreras MRI Brain 1. There is a small 8 mm left temporal lobe cavernous hemangioma with an associated adjacent developmental venous anomaly. 2. There is a single punctate focus of increased signal intensity in the subcortical white matter of the right parietal lobe. This is a nonspecific finding. Electronically Signed by Edvin Medellin MD 03/08/2018 01:25 P A&P: 37yoM admitted to [facility] for depressive disorder 1. Psych. Plan per Psychiatry. EKG on file. 2. Elevated SCr. Baseline appears to be 1.1-1.3. SCr 1.32. Recheck in AM. Add renal U/S UA with reflex culture. Avoid nephrotoxic medications. 3. Asthma. Continue albuterol HFA as needed. 4. Follow up with PCP on discharge. 5. MRI Brain 03/08/18 with small 8 mm left temporal lobe cavernous hemangioma with an associated adjacent developmental venous anomaly. Would recommend to consider neurology consultation for any further recommendat ions. 6. Staff member Aayush present throughout exam. Vital Signs Vital Signs Date Time Temp Pulse Resp B/P (MAP) Pulse Ox O2 Delivery O2 Flow Rate FiO2 03/22/18 06:34 98.4 87 16 146/86 (106) Room Air 03/21/18 11:46 98 Laboratory Data Labs 24H Laboratory Tests 2 03/21/18 11:00: Nucleated Red Blood Cells % (auto) 0.0, Anion Gap 7L, Glomerular Filtration Rate > 60.0, Calcium Level 8.5, Aspartate Amino Transf (AST/SGOT) 44H, Alanine Aminotransferase (ALT/SGPT) 29, Alkaline Phosphatase 65, Total Bilirubin 0.6, Direct Bilirubin 0.2, Total Protein 7.1, Albumin 3.9, Albumin/Globulin Ratio 1.22, Thyroid Stimulating Hormone (TSH) 1.650, Salicylates Level < 1.7L, Urine Amphetamines Screen NEGATIVE, Urine Benzodiazepines Screen NEGATIVE, Urine Opiates Screen NEGATIVE, Urine Methadone Screen NEGATIVE, Acetaminophen Level < 2.0L, Urine Barbiturates Screen NEGATIVE, Urine Phencyclidine Screen NEGATIVE, Urine Cocaine Metabolite Screen NEGATIVE, Urine Cannabinoids Screen NEGATIVE, Ethyl Alcohol Level < 0.003 CBC/BMP Laboratory Tests 03/21/18 11:00 Red Blood Count 4.44, Mean Corpuscular Volume 92.3, Mean Corpuscular Hemoglobin 30.4, Mean Corpuscular Hemoglobin Concent 32.9, Red Cell Distribution Width 12.8 Home Medications Scheduled Cholecalciferol (Vitamin D) 1,000 Unit Tab, 1,000 UNIT PO DAILY Sertraline Hcl (Sertraline HCl) 50 Mg Tab, 50 MG PO DAILY for mood Scheduled PRN Albuterol Sulfate (Proair Hfa) 108 Mcg/Act Aer, 2 PUFF INH Q4H PRN for SHORTNESS OF BREATH Trazodone HCl (Trazodone HCl) 50 Mg Tab, 50 MG PO QPM PRN for INSOMNIA Allergies Coded Allergies: No Known Allergies (Unverified , 11/18/16) Bridget Schafer Mar 22, 2018 09:24
[2018-03-22] MEDS ORDERED: ALBUTEROL 90 MCG/ACT 8GM HFA INHALER INH PRN (09:30)
[2018-03-22] MEDS ORDERED: IBUPROFEN 600 MG TAB PO PRN (10:45)
--- NOTE | 2018-03-22 11:21 | MHHPEPDOC ---
General Date Of Admission: Mar 21, 2018 Legal Status: 9.39 Chief Complaint "My was threatening me and it just became too much." History of Present Illness HISTORY OF THE PRESENT ILLNESS: Patient is a 37 -year-old AAM, male, with a history of depression and SA via )D 02/21/18 who was admitted for depression and SI with plan to drink bleach and HI toward his secondary to marriage stress. Pt states his was threatening him, to harm him, to "take all my money," not letting him make his FDBH appts. States that her threats and agitation made him feel like he was going into a "dark place again" depressed with SI. Pt seen today and states he feels better b/c he's away from his . States he was scared of what he may do should he continue to be around her. States he put in a no contact order as doesn't want her to continue to cause problems in his life. Is now planning on divorce in the future as he thinks that's best for him. Denies current SI/HI, hallucinations, delusions. Feels safe here. Past Psychiatric History Previous Psychiatric Diagnosis: depression, insomnia Previous Psychiatric Admissions: [facility] 02/21/18 secondary depression and OD Suicide Attempts: 35 Nortriptyline 25mg on 02/21/18. Psychiatric Follow-up: [facility] Psychiatric medications: Past Medical History Medical Problems lt temporal hemangioma on Head MRI - medicine to consult neurology to evaluate Head Injury: No Seizures: No Hospitalizations: Yes Surgeries: Yes (wisdom teeth extraction) Family Medical/Psychiatric HX Medical Problems noncontributory Psychiatric Disorders: No Addiction: No Suicide Attemps/Completions: No Addiction History denies Social History Childhood: The patient was [place] "[place] over... 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 Social Support: family, Legal: denies Marital: , no kids Mental Status Examination General Appearance: well groomed, appears stated age, hospital scubs/clothing Build: average Demeanor: average Eye Contact: average Activity: average Behavior: cooperative Speech: clear, spontaneous, normal volume, reg/rate,rhythm,volume Mood: depressed Mood stressed Affect: constricted, flat, appropriate, congruent, anxious Thought Process: logical/linear, depressed, intact Thought Content (Delusions): none reported, denies SI, HI, AVH Thought Content (Other): none reported, appropriate Thought Content (Aggressive): none reported Perception (Hallucinations): none reported Perception (Other): none reported Cognition (Impairment of): none reported Cognition(Intelligence Est.): average Oriented: Awake, Alert, Oriented times three Insight: fair Judgment: Fair Psychosis: Denies Diagnoses Major depression recurrent, severe w/o psychosis Assessment Pt depressed with SI and plan to drink bleach and HI toward his due to ma rital stressors. Pt agreeable to starting zoloft 50mg daily for mood, risks/benefits discussed. [facility] working on half-way treatment in [place]. Initial Treatment Plan 1. Patient was admitted on a 939 status. 2. Complete history was obtained. 3. With patients permission, family will be contacted and database will be expanded. 4. Patients medication regimen will be reviewed and changed accordingly. 5. Patient will be provided with protected environment. 6. Patient will be treated with individual, group, and milieu therapies. 7. Patient will receive supportive psych-education. 8. Discharge planning will commence immediately. 9. Outpatient follow-up treatment will be strongly recommended. 10. The initial treatment plan will focus initially on: * Depression. * Risk for suicide. * Substance abuse. 11. zoloft 50mg daily ESTIMATED LENGTH OF STAY: 7-9 DAYS. TIME SPENT COUNSELING AND COORDINATING INITIAL CARE: 60 minutes. Vital Signs Vital Signs Date Time Temp Pulse Resp B/P (MAP) Pulse Ox O2 Delivery O2 Flow Rate FiO2 03/22/18 06:34 98.4 87 16 146/86 (106) Room Air 03/21/18 11:46 98 Laboratory Data 24H Labs Laboratory Tests 2 03/21/18 11:00: Nucleated Red Blood Cells % (auto) 0.0, Anion Gap 7L, Glomerular Filtration Rate > 60.0, Calcium Level 8.5, Aspartate Amino Transf (AST/SGOT) 44H, Alanine Aminotransferase (ALT/SGPT) 29, Alkaline Phosphatase 65, Total Bilirubin 0.6, Direct Bilirubin 0.2, Total Protein 7.1, Albumin 3.9, Albumin/Globulin Ratio 1.22, Thyroid Stimulating Hormone (TSH) 1.650, Salicylates Level < 1.7L, Urine Amphetamines Screen NEGATIVE, Urine Benzodiazepines Screen NEGATIVE, Urine Opiates Screen NEGATIVE, Urine Methadone Screen NEGATIVE, Acetaminophen Level < 2.0L, Urine Barbiturates Screen NEGATIVE, Urine Phencyclidine Screen NEGATIVE, Urine Cocaine Metabolite Screen NEGATIVE, Urine Cannabinoids Screen NEGATIVE, Et hyl Alcohol Level < 0.003 CBC/BMP Laboratory Tests 03/21/18 11:00 Red Blood Count 4.44, Mean Corpuscular Volume 92.3, Mean Corpuscular Hemoglobin 30.4, Mean Corpuscular Hemoglobin Concent 32.9, Red Cell Distribution Width 12.8 Medications Scheduled Cholecalciferol (Vitamin D) 1,000 Unit Tab, 1,000 UNIT PO DAILY, (Reported) Sertraline Hcl (Sertraline HCl) 50 Mg Tab, 50 MG PO DAILY for mood Scheduled PRN Albuterol Sulfate (Proair Hfa) 108 Mcg/Act Aer, 2 PUFF INH Q4H PRN for SHORTNESS OF BREATH, (Reported) Trazodone HCl (Trazodone HCl) 50 Mg Tab, 50 MG PO QPM PRN for INSOMNIA Allergies Coded Allergies: No Known Allergies (Unverified , 11/18/16) JORGE ALBERTO MENDIETA DO Mar 22, 2018 11:21 am
--- NOTE | 2018-03-22 12:39 | REP ---
Urinary tract sonogram: History: Elevated serum creatinine. Comparison: No comparison study. Findings: Scanning at the level of the urinary bladder shows no abnormality. Renal cortical echogenicity pattern is increased bilaterally consistent with chronic medical renal disease. Renal contours are smooth. There is no evidence of hydronephrosis, cyst, mass, or calculus in either kidney. The right kidney measures 10 20 x 4.3 x 4.5 cm. Left renal dimensions are 11.2 x 4.4 x 4.8 cm. Impression: Increased renal cortical echogenicity pattern consistent with chronic medical renal disease. Otherwise negative urinary tract sonography. Electronically Signed by Wan Wyatt MD 03/22/2018 12:30 P
[2018-03-22 18:00] VITALS: BP 138/76
[2018-03-23 07:00] VITALS: BP 118/71
[2018-03-23 08:07] LABS: BLOOD UREA NITROGEN 12 MG/DL (7-18); CALCIUM LEVEL 8.5 MG/DL (8.5-10.1); CARBON DIOXIDE LEVEL 28 MEQ/L (21-32); CHLORIDE LEVEL 106 MEQ/L (98-107); CREATININE FOR GFR 1.32 MG/DL (0.70-1.30); GLOMERULAR FILTRATION RATE > 60.0 (>60); GLUCOSE, FASTING 89 MG/DL (70-100); POTASSIUM SERUM 3.7 MEQ/L (3.5-5.1); SODIUM LEVEL 140 MEQ/L (136-145)
--- NOTE | 2018-03-23 09:57 | MHIPNPDOC ---
[facility] Progress Note Progress Note DATE OF SERVICE: 03/23/18 HISTORY: Patient is a 37 -year-old AAM, male, with a history of depression and SA via OD 02/21/18 who was admitted for depression and SI with plan to drink bleach and HI toward his secondary to marriage stress. Pt states his was threatening him, to harm him, to "take all my money," not letting him make his FDBH appts. States that her threats and agitation made him feel like he was going into a "dark place again" depressed with SI. Pt seen today and states he feels better b/c he's away from his . States he was scared of what he may do should he continue to be around her. States he put in a no contact order as doesn't want her to continue to cause problems in his life. Is now planning on divorce in the future as he thinks that's best for him. Denies current SI/HI, hallucinations, delusions. Feels safe here. VITAL SIGNS: See below. NEW TEST RESULTS: AST 44 very mild elevation. CMP otherwise wnl. CURRENT MEDICATIONS: See below. MENTAL STATUS EXAMINATION: General Appearance: well groomed, appears stated age, hospital scrubs/clothing Build: average Demeanor: average Eye Contact: average Activity: average Behavior: cooperative Speech: clear, spontaneous, normal volume, reg/rate,rhythm,volume Mood: depressed Mood ok Affect: constricted, flat, appropriate, congruent, less anxious Thought Process: logical/linear, depressed, intact Thought Content (Delusions): none reported, denies SI, HI, AVH Thought Content (Other): none reported, appropriate Thought Content (Aggressive): none reported Perception (Hallucinations): none reported Perception (Other): none reported Cognition (Impairment of): none reported Cognition(Intelligence Est.): average Oriented: Awake, Alert, Oriented times three Insight: fair Judgment: Fair Psychosis: Denies DIAGNOSES: 1. Major depression recurrent, severe w/o psychosis ASSESSMENT:Pt seen and states that his mood is "ok.." States he didn't take zoloft yesterday b/c he was told he may have liver problems. Pt advised that it is safe to take the zoloft as liver enzymes are roughly wnl. Advised it is m ore damaging to take tylenol than zyprexa for the liver. States he'll take it but doesn't seems reliable or even motivated to. Encouraged that it will help his overall mood and anxiety. States he slept well last night. He is attending groups and finding them helpful. He denies SI/HI, hallucinations, delusions. Agreeable to nursing home treatment in [place] thru [facility]. Pt feels safe here. MANAGEMENT PLAN: continue current plan. Medications: trazodone 50mg qhs prn insomnia zoloft 50mg daily TIME SPENT: 30 minutes. Vital Signs Vital Signs Date Time Temp Pulse Resp B/P (MAP) Pulse Ox O2 Delivery O2 Flow Rate FiO2 03/23/18 07:00 98.0 76 16 118/71 (87) 03/22/18 06:34 Room Air 03/21/18 11:46 98 Laboratory Data 24H Labs Laboratory Tests 2 03/23/18 06:25: Anion Gap 6L, Glomerular Filtration Rate > 60.0, Blood Urea Nitrogen 12, Creatinine 1.32H, Sodium Level 140, Potassium Level 3.7, Chloride Level 106, Carbon Dioxide Level 28, Calcium Level 8.5 CBC/BMP Laboratory Tests 03/23/18 06:25 Calcium Level 8.5 Current Medications Current Medications Acetaminophen (Tylenol Tab) 650 mg Q6HP PRN PO HEADACHE or DISCOMFORT Last administered on 03/22/18at 08:35; Start 03/21/18 at 15:00 Al Hydrox/Mg Hydrox/Simethicone (Mylanta) 30 ml Q4HP PRN PO HEARTBURN/INDIGESTION; Start 03/21/18 at 15:00 Albuterol Sulfate (Proventil, Ventolin Hfa) 2 puff Q4HP PRN INH SHORTNESS OF BREATH; Start 03/22/18 at 09:30 Ibuprofen (Advil) 600 mg Q6HP PRN PO MODERATE PAIN (PS 5-7); Start 03/22/18 at 10:45 Magnesium Hydroxide (Milk Of Magnesia) 30 ml DAILYPRN PRN PO CONSTIPATION; Start 03/21/18 at 15:00 Trazodone HCl (Desyrel) 50 mg QHSP PRN PO INSOMNIA; Start 03/21/18 at 15:00 Allergies Coded Allergies: No Known Allergies (Unverified , 11/18/16) JORGE ALBERTO MENDIETA DO Mar 23, 2018 9:49 am
[2018-03-23 18:10] VITALS: BP 118/73
[2018-03-24 06:09] VITALS: BP 149/84
[2018-03-24 18:00] VITALS: BP 138/70
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
[2018-03-25 06:27] VITALS: BP 134/68
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
[2018-03-25 18:00] VITALS: BP 124/79
[2018-03-26 06:00] VITALS: BP 107/85
[2018-03-26] MEDS ORDERED: SERTRALINE HCL 50 MG TAB PO SCH (09:00)
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
[2018-03-26] MEDS ORDERED: CEPACOL LOZENGE PO PRN (11:00)
[2018-03-26 18:29] VITALS: BP 128/62
[2018-03-27 06:38] VITALS: BP 136/83
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
[2018-03-27 18:00] VITALS: BP 135/73
[2018-03-27] MEDS ORDERED: SERTRALINE HCL 25 MG TABLET PO SCH (21:00)
[2018-03-28 06:58] VITALS: BP 131/81
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
[2018-03-28 18:00] VITALS: BP 138/64
[2018-03-28] MEDS: ESCITALOPRAM OXALATE 5MG TABLET (LEXAPRO) PO SCH (21:10)
[2018-03-29 06:00] VITALS: BP 158/94
[2018-03-29] MEDS ORDERED: CEPACOL LOZENGE PO PRN (10:15)
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
[2018-03-29 18:00] VITALS: BP 136/64
[2018-03-29] MEDS: ESCITALOPRAM OXALATE 5MG TABLET (LEXAPRO) PO SCH (22:34)
[2018-03-30 07:38] VITALS: BP 138/63
--- NOTE | 2018-03-30 09:20 | MHIPNPDOC ---
[facility] Progress Note Progress Note DATE OF SERVICE: 03/30/18 HISTORY: Patient is a 37 -year-old AAM, male, with a history of depression and SA via OD 02/21/18 who was admitted for depression and SI with plan to drink ble ach and HI toward his secondary to marriage stress. Pt states his was threatening him, to harm him, to "take all my money," not letting him make his FDBH appts. States that her threats and agitation made him feel like he was going into a "dark place again" depressed with SI. Pt seen today and states he feels better b/c he's away from his . States he was scared of what he may do should he continue to be around her. States he put in a no contact order as doesn't want her to continue to cause problems in his life. Is now planning on divorce in the future as he thinks that's best for him. Denies current SI/HI, hallucinations, delusions. Feels safe here. VITAL SIGNS: See below. NEW TEST RESULTS: AST 44 very mild elevation. CMP otherwise wnl. CURRENT MEDICATIONS: See below. MENTAL STATUS EXAMINATION: General Appearance: well groomed, appears stated age, hospital scrubs/clothing Build: average Demeanor: average Eye Contact: average Activity: average Behavior: cooperative Speech: clear, spontaneous, normal volume, reg/rate,rhythm,volume Mood: less depressed, no longer anxious Mood "better" Affect: less constricted and flat, appropriate, congruent, no longer anxious Thought Process: logical/linear, depressed, intact Thought Content (Delusions): none reported, denies SI, HI, AVH Thought Content (Other): none reported, appropriate Thought Content (Aggressive): none reported Perception (Hallucinations): none reported Perception (Other): none reported Cognition (Impairment of): none reported Cognition(Intelligence Est.): average Oriented: Awake, Alert, Oriented times three Insight: fair Judgment: Fair Psychosis: Denies DIAGNOSES: 1. Major depression recurrent, severe w/o psychosis ASSESSMENT:Pt seen and states he's doing good. States his stomach no longer hurts since his zoloft was discontinued and he was started on lexapro that he's tolerating well and finding beneficial. States he's eating and sleeping well. He is attending groups and finding them helpful. He denies SI/HI, hallucinations, delusions. Agreeable to detention treatment in [place] thru [facility] and looking forward to going. Pt feels safe here. MANAGEMENT PLAN: continue current plan. d/c zoloft, start lexapro 5mg qhs Medications: trazodone 50mg qhs prn insomnia lexapro 5mg qhs TIME SPENT: 30 minutes. Vital Signs Vital Signs Date Time Temp Pulse Resp B/P (MAP) Pulse Ox O2 Delivery O2 Flow Rate FiO2 03/30/18 07:38 98.1 68 18 138/63 (88) 03/28/18 06:58 Room Air Current Medications Current Medications Acetaminophen (Tylenol Tab) 650 mg Q6HP PRN PO HEADACHE or DISCOMFORT Last administered on 03/22/18 08:35; Start 03/21/18 at 15:00 Al Hydrox/Mg Hydrox/Simethicone (Mylanta) 30 ml Q4HP PRN PO HEARTBURN/INDIGESTION; Start 03/21/18 at 15:00 Albuterol Sulfate (Proventil, Ventolin Hfa) 2 puff Q4HP PRN INH SHORTNESS OF BREATH Last administered on 03/25/18at 08:49; Start 03/22/18 at 09:30 Cetylpyridinium Chloride (Cepacol) 1 melodie Q2HP PRN PO COUGH Last administered on 03/29/18at 16:19; Start 03/26/18 at 11:00 Cetylpyridinium Chloride (Cepacol) 1 melodie Q2HP PRN PO COUGH; Start 03/29/18 at 10:15; Status UNV Escitalopram Oxalate (Lexapro) 5 mg QHS PO Last administered on 03/29/18at 22:34; Start 03/28/18 at 21:00 Ibuprofen (Advil) 600 mg Q6HP PRN PO MODERATE PAIN (PS 5-7) Last administered on 03/29/18 22:35; Start 03/22/18 at 10:45 Magnesium Hydroxide (Milk Of Magnesia) 30 ml DAILYPRN PRN PO CONSTIPATION Last administered on 03/27/18at 23:02; Start 03/21/18 at 15:00 Sertraline HCl (Zoloft) 25 mg QHS PO Last administered on 03/27/18at 21:47; Start 03/27/18 at 21:00; Stop 03/28/18 at 09:44; Status DC Sertraline HCl (Zoloft) 50 mg DAILY PO Last administered on 03/26/18at 11:21; Start 03/26/18 at 09:00; Stop 03/27/18 at 08:38; Status DC Trazodone HCl (Desyrel) 50 mg QHSP PRN PO INSOMNIA; Start 03/21/18 at 15:00 Allergies Coded Allergies: No Known Allergies (Unverified , 11/18/16) JORGE ALBERTO MENDIETA DO Mar 30, 2018 9:20 am
[2018-03-30 18:00] VITALS: BP 127/77
[2018-03-30] MEDS: ESCITALOPRAM OXALATE 5MG TABLET (LEXAPRO) PO SCH (22:24)
[2018-03-31 06:34] VITALS: BP 113/66
[2018-03-31 18:00] VITALS: BP 166/71
[2018-03-31] MEDS: ESCITALOPRAM OXALATE 5MG TABLET (LEXAPRO) PO SCH (23:54)
[2018-04-01 06:27] VITALS: BP 106/56
[2018-04-01 18:00] VITALS: BP 123/69
[2018-04-01] MEDS: ESCITALOPRAM OXALATE 5MG TABLET (LEXAPRO) PO SCH (23:09)
[2018-04-02 06:48] VITALS: BP 146/91
--- NOTE | 2018-04-02 10:19 | MHIPNPDOC ---
[facility] Progress Note Progress Note DATE OF SERVICE: 04/02/18 HISTORY: Patient is a 37 -year-old AAM, male, with a history of depression and SA via OD 02/21/18 who was admitted for depression and SI with plan to drink ble ach and HI toward his secondary to marriage stress. Pt states his was threatening him, to harm him, to "take all my money," not letting him make his FDBH appts. States that her threats and agitation made him feel like he was going into a "dark place again" depressed with SI. Pt seen today and states he feels better b/c he's away from his . States he was scared of what he may do should he continue to be around her. States he put in a no contact order as doesn't want her to continue to cause problems in his life. Is now planning on divorce in the future as he thinks that's best for him. Denies current SI/HI, hallucinations, delusions. Feels safe here. VITAL SIGNS: See below. NEW TEST RESULTS: AST 44 very mild elevation. CMP otherwise wnl. CURRENT MEDICATIONS: See below. MENTAL STATUS EXAMINATION: General Appearance: well groomed, appears stated age, hospital scrubs/clothing Build: average Demeanor: average Eye Contact: average Activity: average Behavior: cooperative Speech: clear, spontaneous, normal volume, reg/rate,rhythm,volume Mood: less depressed, no longer anxious Mood "good" Affect: improving range, appropriate, congruent, no longer anxious Thought Process: logical/linear, depressed, intact Thought Content (Delusions): none reported, denies SI, HI, AVH Thought Content (Other): none reported, appropriate Thought Content (Aggressive): none reported Perception (Hallucinations): none reported Perception (Other): none reported Cognition (Impairment of): none reported Cognition(Intelligence Est.): average Oriented: Awake, Alert, Oriented times three Insight: fair Judgment: Fair Psychosis: Denies DIAGNOSES: 1. Major depression recurrent, severe w/o psychosis ASSESSMENT:Pt seen and states he's doing good. States he feels ok to go home as is getting sick of waiting to go to [place] for penitentiary treatment due to a issue with his travel card thru the . States if possible he could stay in the barracks until he can go to [place] as his mood is greatly improved and he denies SI. States lexapro is beneficial and he's tolerating it. States he's eating and sleeping well. He is attending groups and finding them helpful. He denies SI/HI, hallucinations, delusions. Agreeable to penitentiary treatment in [place] thru [facility] and looking forward to going. Pt feels safe here. MANAGEMENT PLAN: continue current plan. Medications: trazodone 50mg qhs prn insomnia lexapro 5mg qhs TIME SPENT: 30 minutes. Vital Signs Vital Signs Date Time Temp Pulse Resp B/P (MAP) Pulse Ox O2 Delivery O2 Flow Rate FiO2 04/02/18 06:48 98.1 76 16 146/91 (109) 04/01/18 18:00 96 03/28/18 06:58 Room Air Current Medications Current Medications Acetaminophen (Tylenol Tab) 650 mg Q6HP PRN PO HEADACHE or DISCOMFORT Last administered on 03/22/18 08:35; Start 03/21/18 at 15:00 Al Hydrox/Mg Hydrox/Simethicone (Mylanta) 30 ml Q4HP PRN PO HEARTBURN/INDIGESTION; Start 03/21/18 at 15:00 Albuterol Sulfate (Proventil, Ventolin Hfa) 2 puff Q4HP PRN INH SHORTNESS OF BREATH Last administered on 03/25/18at 08:49; Start 03/22/18 at 09:30 Cetylpyridinium Chloride (Cepacol) 1 melodie Q2HP PRN PO COUGH Last administered on 03/29/18at 16:19; Start 03/26/18 at 11:00 Cetylpyridinium Chloride (Cepacol) 1 melodie Q2HP PRN PO COUGH; Start 03/29/18 at 10:15; Status UNV Escitalopram Oxalate (Lexapro) 5 mg QHS PO Last administered on 04/01/18at 23:09; Start 03/28/18 at 21:00 Ibuprofen (Advil) 600 mg Q6HP PRN PO MODERATE PAIN (PS 5-7) Last administered on 03/29/18at 22:35; Start 03/22/18 at 10:45 Magnesium Hydroxide (Milk Of Magnesia) 30 ml DAILYPRN PRN PO CONSTIPATION Last administered on 03/27/18at 23:02; Start 03/21/18 at 15:00 Sertraline HCl (Zoloft) 25 mg QHS PO Last administered on 03/27/18at 21:47; Start 03/27/18 at 21:00; Stop 03/28/18 at 09:44; Status DC Sertraline HCl (Zoloft) 50 mg DAILY PO Last administered on 03/26/18at 11:21; Start 03/26/18 at 09:00; Stop 03/27/18 at 08:38; Status DC Trazodone HCl (Desyrel) 50 mg QHSP PRN PO INSOMNIA; Start 03/21/18 at 15:00 Allergies Coded Allergies: No Known Allergies (Unverified , 11/18/16) JORGE ALBERTO MENDIETA DO Apr 02, 2018 9:11 am
[2018-04-02 18:00] VITALS: BP 129/75
[2018-04-02] MEDS: ESCITALOPRAM OXALATE 5MG TABLET (LEXAPRO) PO SCH (21:00)
[2018-04-03 06:36] VITALS: BP 115/63
--- NOTE | 2018-04-03 09:35 | MHIPNPDOC ---
[facility] Progress Note Progress Note DATE OF SERVICE: 04/03/18 HISTORY: Patient is a 37 -year-old AAM, male, with a history of depression and SA via OD 02/21/18 who was admitted for depression and SI with plan to drink ble ach and HI toward his secondary to marriage stress. Pt states his was threatening him, to harm him, to "take all my money," not letting him make his FDBH appts. States that her threats and agitation made him feel like he was going into a "dark place again" depressed with SI. Pt seen today and states he feels better b/c he's away from his . States he was scared of what he may do should he continue to be around her. States he put in a no contact order as doesn't want her to continue to cause problems in his life. Is now planning on divorce in the future as he thinks that's best for him. Denies current SI/HI, hallucinations, delusions. Feels safe here. VITAL SIGNS: See below. NEW TEST RESULTS: AST 44 very mild elevation. CMP otherwise wnl. CURRENT MEDICATIONS: See below. MENTAL STATUS EXAMINATION: General Appearance: well groomed, appears stated age, hospital scrubs/clothing Build: average Demeanor: average Eye Contact: average Activity: average Behavior: cooperative Speech: clear, spontaneous, normal volume, reg/rate,rhythm,volume Mood: less depressed, no longer anxious Mood "good" Affect: improving range, appropriate, congruent, no longer anxious Thought Process: logical/linear, improved depressive thoughts, intact Thought Content (Delusions): none reported, denies SI, HI, AVH Thought Content (Other): none reported, appropriate Thought Content (Aggressive): none reported Perception (Hallucinations): none reported Perception (Other): none reported Cognition (Impairment of): none reported Cognition(Intelligence Est.): average Oriented: Awake, Alert, Oriented times three Insight: fair Judgment: Fair Psychosis: Denies DIAGNOSES: 1. Major depression recurrent, severe w/o psychosis ASSESSMENT:Pt seen and states he's doing good and is hoping he can go home and stay in the barracks with the approval of his [facility] and fdbh as he waits to go to [place] for alf treatment due to a issue with his travel card thru the . States lexapro is beneficial and he's tolerating it. Would like copy of [place] regarding lexapro. States he's eating and sleeping well. He is attending groups and finding them helpful. He denies SI/HI, hallucinations, delusions. Agreeable to alf treatment in [place] thru [facility] and looking forward to going. Pt feels safe here. MANAGEMENT PLAN: continue current plan. Medications: trazodone 50mg qhs prn insomnia lexapro 5mg qhs TIME SPENT: 30 minutes. Vital Signs Vital Signs Date Time Temp Pulse Resp B/P (MAP) Pulse Ox O2 Delivery O2 Flow Rate FiO2 04/03/18 06:36 97.2 58 14 115/63 (80) 04/01/18 18:00 96 03/28/18 06:58 Room Air Current Medications Current Medications Acetaminophen (Tylenol Tab) 650 mg Q6HP PRN PO HEADACHE or DISCOMFORT Last administered on 03/22/18at 08:35; Start 03/21/18 at 15:00 Al Hydrox/Mg Hydrox/Simethicone (Mylanta) 30 ml Q4HP PRN PO HEARTBURN/INDIGESTION; Start 03/21/18 at 15:00 Albuterol Sulfate (Proventil, Ventolin Hfa) 2 puff Q4HP PRN INH SHORTNESS OF BREATH Last administered on 03/25/18at 08:49; Start 03/22/18 at 09:30 Cetylpyridinium Chloride (Cepacol) 1 melodie Q2HP PRN PO COUGH Last administered on 03/29/18at 16:19; Start 03/26/18 at 11:00 Cetylpyridinium Chloride (Cepacol) 1 melodie Q2HP PRN PO COUGH; Start 03/29/18 at 10:15; Status UNV Escitalopram Oxalate (Lexapro) 5 mg QHS PO Last administered on 04/02/18at 21:00; Start 03/28/18 at 21:00 Ibuprofen (Advil) 600 mg Q6HP PRN PO MODERATE PAIN (PS 5-7) Last administered on 03/29/18at 22:35; Start 03/22/18 at 10:45 Magnesium Hydroxide (Milk Of Magnesia) 30 ml DAILYPRN PRN PO CONSTIPATION Last administered on 03/27/18at 23:02; Start 03/21/18 at 15:00 Sertraline HCl (Zoloft) 25 mg QHS PO Last administered on 03/27/18at 21:47; Start 03/27/18 at 21:00; Stop 03/28/18 at 09:44; Status DC Sertraline HCl (Zoloft) 50 mg DAILY PO Last administered on 03/26/18at 11:21; Start 03/26/18 at 09:00; Stop 03/27/18 at 08:38; Status DC Trazodone HCl (Desyrel) 50 mg QHSP PRN PO INSOMNIA; Start 03/21/18 at 15:00 Allergies Coded Allergies: No Known Allergies (Unverified , 11/18/16) JORGE ALBERTO MENDIETA DO Apr 03, 2018 9:35 am
[2018-04-03 18:00] VITALS: BP 127/67
[2018-04-03] MEDS: ESCITALOPRAM OXALATE 5MG TABLET (LEXAPRO) PO SCH (21:18)
[2018-04-04 06:12] VITALS: BP 107/68
--- NOTE | 2018-04-04 09:31 | MHIPNPDOC ---
[facility] Progress Note Progress Note DATE OF SERVICE: 04/04/18 HISTORY: Patient is a 37 -year-old AAM, male, with a history of depression and SA via OD 02/21/18 who was admitted for depression and SI with plan to drink ble ach and HI toward his secondary to marriage stress. Pt states his was threatening him, to harm him, to "take all my money," not letting him make his FDBH appts. States that her threats and agitation made him feel like he was going into a "dark place again" depressed with SI. Pt seen today and states he feels better b/c he's away from his . States he was scared of what he may do should he continue to be around her. States he put in a no contact order as doesn't want her to continue to cause problems in his life. Is now planning on divorce in the future as he thinks that's best for him. Denies current SI/HI, hallucinations, delusions. Feels safe here. VITAL SIGNS: See below. NEW TEST RESULTS: AST 44 very mild elevation. CMP otherwise wnl. CURRENT MEDICATIONS: See below. MENTAL STATUS EXAMINATION: General Appearance: well groomed, appears stated age, hospital scrubs/clothing Build: average Demeanor: average Eye Contact: average Activity: average Behavior: cooperative Speech: clear, spontaneous, normal volume, reg/rate,rhythm,volume Mood: less depressed, no longer anxious Mood "good" Affect: improving range, appropriate, congruent, no longer anxious Thought Process: logical/linear, improved depressive thoughts, intact Thought Content (Delusions): none reported, denies SI, HI, AVH Thought Content (Other): none reported, appropriate Thought Content (Aggressive): none reported Perception (Hallucinations): none reported Perception (Other): none reported Cognition (Impairment of): none reported Cognition(Intelligence Est.): average Oriented: Awake, Alert, Oriented times three Insight: fair Judgment: Fair Psychosis: Denies DIAGNOSES: 1. Major depression recurrent, severe w/o psychosis ASSESSMENT:Pt seen and states he's doing good today. Per d/c media planner who just spoke to [place], there are still problems with pt's travel card so unable to go to [place] for senior care treatment this week. [facility] agreeable to d/c of pt to [facility] tomorrow to the barr[facility] as he continues to wait to go to senior care treatment. States lexapro is beneficial and he's tolerating it. Given copy of [facility] regarding lexapro. States he's eating and sleeping well. He is attending groups and finding them helpful. He denies SI/HI, hallucinations, delusions. Agreeable to senior care treatment in [place] thru [facility] and looking forward to going. Pt feels safe here. MANAGEMENT PLAN: continue current plan. Medications: trazodone 50mg qhs prn insomnia lexapro 5mg qhs TIME SPENT: 30 minutes. Vital Signs Vital Signs Date Time Temp Pulse Resp B/P (MAP) Pulse Ox O2 Delivery O2 Flow Rate FiO2 04/04/18 06:12 98.6 56 16 107/68 (81) 04/01/18 18:00 96 Current Medications Current Medications Acetaminophen (Tylenol Tab) 650 mg Q6HP PRN PO HEADACHE or DISCOMFORT Last administered on 03/22/18at 08:35; Start 03/21/18 at 15:00 Al Hydrox/Mg Hydrox/Simethicone (Mylanta) 30 ml Q4HP PRN PO HEARTBURN/INDIGESTION; Start 03/21/18 at 15:00 Albuterol Sulfate (Proventil, Ventolin Hfa) 2 puff Q4HP PRN INH SHORTNESS OF BREATH Last administered on 03/25/18at 08:49; Start 03/22/18 at 09:30 Cetylpyridinium Chloride (Cepacol) 1 melodie Q2HP PRN PO COUGH Last administered on 03/29/18at 16:19; Start 03/26/18 at 11:00 Cetylpyridinium Chloride (Cepacol) 1 melodie Q2HP PRN PO COUGH; Start 03/29/18 at 10:15; Status UNV Escitalopram Oxalate (Lexapro) 5 mg QHS PO Last administered on 04/03/18at 21:18; Start 03/28/18 at 21:00 Ibuprofen (Advil) 600 mg Q6HP PRN PO MODERATE PAIN (PS 5-7) Last administered on 03/29/18at 22:35; Start 03/22/18 at 10:45 Magnesium Hydroxide (Milk Of Magnesia) 30 ml DAILYPRN PRN PO CONSTIPATION Last administered on 03/27/18at 23:02; Start 03/21/18 at 15:00 Sertraline HCl (Zoloft) 25 mg QHS PO Last administered on 03/27/18at 21:47; Start 03/27/18 at 21:00; Stop 03/28/18 at 09:44; Status DC Sertraline HCl (Zoloft) 50 mg DAILY PO Last administered on 03/26/18at 11:21; Start 03/26/18 at 09:00; Stop 03/27/18 at 08:38; Status DC Trazodone HCl (Desyrel) 50 mg QHSP PRN PO INSOMNIA; Start 03/21/18 at 15:00 Allergies Coded Allergies: No Known Allergies (Unverified , 11/18/16) JORGE ALBERTO MENDIETA DO Apr 04, 2018 9:31 am
[2018-04-04 18:00] VITALS: BP 118/73
[2018-04-04] MEDS: ESCITALOPRAM OXALATE 5MG TABLET (LEXAPRO) PO SCH (21:35)
[2018-04-05 06:18] VITALS: BP 119/67
--- NOTE | 2018-04-05 09:25 | MHDSPDOC ---
[facility] Discharge Summary Discharge Summary DATE OF ADMISSION: Mar 21, 2018 at 2:49 pm DATE OF DISCHARGE: Apr 05, 2018 DISCHARGE DIAGNOSES: 1. . 2. . REASON FOR ADMISSION: Patient is a 37 -year-old AAM, male, with a history of depression and SA via OD 02/21/18 who was admitted for depression and SI with plan to drink bleach and HI toward his secondary to marriage stress. Pt states his was threatening him, to harm him, to "take all my money," not letting him make his FDBH appts. States that her threats and agitation made him feel like he was going into a "dark place again" depressed with SI. Pt seen today and states he feels better b/c he's away from his . States he was scared of what he may do should he continue to be around her. States he put in a no contact order as doesn't want her to continue to cause problems in his life. Is now planning on divorce in the future as he thinks that's best for him. Denies current SI/HI, hallucinations, delusions. Feels safe here. CONSULTANTS INVOLVED: none TREATMENT AND PROGRESS ON THE UNIT : Pt was admitted to [facility], seen for psychi atric assessment and started on zoloft that he didn't tolerate due to stomach upset so it was discontinued and he was started on lexapro 5mg qhs that he tolerated well and found beneficial. He was provided trazodone 50mg qhs prn insomnia. Pt found his medications beneficial and tolerated them well. He attended groups daily during his stay. His symptoms improved with treatment. On day of discharge he denied depression, anxiety, insomnia, SI/HI, hallucinations, delusions. He was discharged to the [facility] with his [facility] to await transfer to [place] for long term treatment. He felt safe for discharge. DISCHARGE ASSESSMENT: Pt seen and states he's feels "good" and ready to be discharged with his [facility] to the [facility] to await transfer to [place] for long term treatment once the problems with his travel card are fixed. States lexapro is beneficial and he's tolerating it. Given copy of [facility] regarding lexapro yesterday. States he's eating and sleeping well. He is attending groups and finding them helpful. He denies depression, anxiety, insomnia, SI/HI, hallucinations, delusions. Agreeable to long term treatment in [place] thru [facility] and looking forward to going. Pt feels to be discharged with[facility] to the [facility] today. MENTAL STATUS EXAMINATION ON DISCHARGE: General Appearance: well groomed, appears stated age, hospital scrubs/clothing Build: average Demeanor: average Eye Contact: average Activity: average Behavior: cooperative Speech: clear, spontaneous, normal volume, reg/rate,rhythm,volume Mood: euthymic, full, no longer anxious Mood "good" Affect: euthymic, appropriate, congruent, no longer anxious Thought Process: logical/linear, improved depressive thoughts, intact Thought Content (Delusions): none reported, denies SI, HI, AVH Thought Content (Other): none reported, appropriate Thought Content (Aggressive): none reported Perception (Hallucinations): none reported Perception (Other): none reported Cognition (Impairment of): none reported Cognition(Intelligence Est.): average Oriented: Awake, Alert, Oriented times three Insight: fair Judgment: Fair Psychosis: Denies MEDICATIONS ON DISCHARGE: trazodone 50mg qhs prn insomnia lexapro 5mg qhs. PLAN/FOLLOWUP ARRANGEMENTS: D/c to [facility] with [facility] as he awaits transfer to [place] for long term treatment. The amount of time spent in the coordination of care for this patient was approximately 30 minutes. Vital Signs/I&Os Vital Signs Date Time Temp Pulse Resp B/P (MAP) Pulse Ox O2 Delivery O2 Flow Rate FiO2 04/05/18 06:18 97.9 58 14 119/67 (84) 04/01/18 18:00 96 Medications Scheduled Cholecalciferol (Vitamin D) 1,000 Unit Tab, 1,000 UNIT PO DAILY, (Reported) Sertraline Hcl (Sertraline HCl) 50 Mg Tab, 50 MG PO DAILY for mood, #10 Scheduled PRN Albuterol Sulfate (Proair Hfa) 108 Mcg/Act Aer, 2 PUFF INH Q4H PRN for SHORTNESS OF BREATH, (Reported) Trazodone HCl (Trazodone HCl) 50 Mg Tab, 50 MG PO QPM PRN for INSOMNIA for 30 Days, #10 Allergies Coded Allergies: No Known Allergies (Unverified , 11/18/16) JORGE ALBERTO MENDIETA DO Apr 05, 2018 9:25 am
[2018-04-05] MEDS ORDERED: LEXA5TAB13 PO (09:27)
== END 2018-04-05 11:00 | disposition home or self-care (01) | DRG 885 ==
LOC: M ED 10:34 → M ED INP 14:49 → M PSY 17:08
PROVIDERS: ADMIT Psychiatry & Neurology Psychiatry; ATTEND Psychiatry & Neurology Psychiatry
DX: F33.2 Major depressive disorder, recurrent severe without psychotic features (principal); R45.851 Suicidal ideations; F41.9 Anxiety disorder, unspecified; J45.909 Unspecified asthma, uncomplicated

== ENCOUNTER 2018-05-15 15:17 | Emergency (ER) | payer OTHER ==
[~2018-05-15] VITALS: Ht 188 cm; Wt 109.0 kg
[~2018-05-15 15:17] MED LIST changes: +LEXA5TAB13 PO
[2018-05-15 16:26] LABS: HEMATOCRIT 44.3 % (42.0-52.0); HEMOGLOBIN 14.7 g/dl (13.5-17.5); MEAN CORPUSCULAR HEMOGLOBIN 30.2 pg (27.0-33.0); MEAN CORPUSCULAR HGB CONC 33.2 g/dl (32.0-36.5); PLATELET COUNT, AUTOMATED 188 10^3/uL (150-450); RED BLOOD COUNT 4.87 10^6/uL (4.30-6.10); WHITE BLOOD COUNT 6.6 10^3/uL (4.0-10.0)
[2018-05-15 16:50] LABS: AMPHETAMINES LEVEL URINE NEGATIVE (NEGATIVE); BARBITURATES URINE NEGATIVE (NEGATIVE); BENZODIAZEPINES URINE NEGATIVE (NEGATIVE); CANNABINOIDS URINE NEGATIVE (NEGATIVE); COCAINE METABOLITE URINE NEGATIVE (NEGATIVE); METHADONE URINE NEGATIVE (NEGATIVE); OPIATES URINE NEGATIVE (NEGATIVE); PHENCYCLIDINE URINE NEGATIVE (NEGATIVE)
[2018-05-15 17:03] LABS: ACETAMINOPHEN LEVEL < 2.0 UG/ML (10.0-30.0); ALBUMIN 4.2 GM/DL (3.2-5.2); ALT/SGPT 30 U/L (12-78); BILIRUBIN,DIRECT 0.2 MG/DL (0.0-0.2); BILIRUBIN,TOTAL 0.7 MG/DL (0.2-1.0); BLOOD UREA NITROGEN 11 MG/DL (7-18); CALCIUM LEVEL 8.8 MG/DL (8.5-10.1); CARBON DIOXIDE LEVEL 31 MEQ/L (21-32); CHLORIDE LEVEL 103 MEQ/L (98-107); CREATININE FOR GFR 1.21 MG/DL (0.70-1.30); ETHYL ALCOHOL (ETHANOL) < 0.003 % (0.000-0.010); GLOMERULAR FILTRATION RATE > 60.0 (>60); GLUCOSE, FASTING 74 MG/DL (70-100); SALICYLATE LEVEL < 1.7 MG/DL (5.0-30.0); SODIUM LEVEL 138 MEQ/L (136-145); TOTAL PROTEIN 7.9 GM/DL (6.4-8.2)
[2018-05-15] MEDS ORDERED: ESCITALOPRAM OXALATE 5MG TABLET (LEXAPRO) PO ONE (22:15)
[2018-05-15 22:44] VITALS: BP 128/73
--- NOTE | 2018-05-16 21:18 | ECGEPIP ---
Stationary ECG Study [facility] - ED Test Date: 2018-05-15 Pat Name: SCOOBY MEDEROS Department: Room: - Gender: M Natural Fabricator: : 1980 Requested By: Jason Pereyra Order Number: [id number] Reading MD: Wilma Olson Measurements Intervals [place] Rate: 63 P: 53 OR: 159 QRS: 61 QRSD: 97 T: 32 QT: 414 QTc: 425 Interpretive Statements SINUS RHYTHM NONSPECIFIC ST ELEVATION REQUIRES CLINICAL CORRELATION DECREASED RATE 02/21/18 Electronically Signed On 05-16-2018 21:17:43 EDT by Wilma Olson
== END 2018-05-15 22:49 ==
LOC: M ED 15:17
DX: R45.851 Suicidal ideations (principal); R45.850 Homicidal ideations; Z91.5 Personal history of self-harm; F32.9 Major depressive disorder, single episode, unspecified; N28.9 Disorder of kidney and ureter, unspecified; D18.02 Hemangioma of intracranial structures; J45.909 Unspecified asthma, uncomplicated; Z79.899 Other long term (current) drug therapy
CPT/HCPCS: 36415; 80048; 80076; 80307; 84443; 85027; 93005; 99285; G0480

== ENCOUNTER 2018-07-19 16:45 | Emergency (ER) | payer OTHER ==
[~2018-07-19 16:45] MED LIST changes: +SERT-141 PO; -SERT50TA PO
[2018-07-19] MEDS ORDERED: NS 1,000 ML IV ONE (17:00)
[2018-07-19] MEDS ORDERED: TRAZ-160 (17:04)
[2018-07-19] MEDS ORDERED: LEXA1TAB2 PO (17:04)
[2018-07-19] MEDS ORDERED: MAXA10TA14 PO (17:04)
[2018-07-19] MEDS ORDERED: PRED10TA2 PO (17:04)
[2018-07-19 17:28] LABS: BASO % 0.5 % (0.0-1.0); EOS # 0.2 10^3/uL (0.0-0.50); EOS % 4.1 % (0.0-3.0); HEMATOCRIT 41.8 % (42.0-52.0); LYMPH # 2.2 10^3/uL (1.5-4.5); LYMPH % 38.2 % (24.0-44.0); MEAN CORPUSCULAR HEMOGLOBIN 30.8 pg (27.0-33.0); MEAN CORPUSCULAR HGB CONC 33.5 g/dl (32.0-36.5); MEAN CORPUSCULAR VOLUME 91.9 fl (80.0-96.0); MONO # 0.4 10^3/uL (0.0-0.8); MONO % 7.1 % (0.0-5.0); NEUTROPHILS # 2.8 10^3/uL (1.8-7.7); NEUTROPHILS % 49.9 % (36.0-66.0); PLATELET COUNT, AUTOMATED 194 10^3/uL (150-450); RED BLOOD COUNT 4.55 10^6/uL (4.30-6.10); WHITE BLOOD COUNT 5.7 10^3/uL (4.0-10.0)
--- NOTE | 2018-07-19 17:43 | REP ---
Clinical: Syncope . Comparison: None . Findings: The ventricles, sulci, and cisterns are normal in position and appearance. Gomez-white differentiation is maintained. No acute intracranial hemorrhage, mass/mass effect, pathology or trauma/injury. No evidence for acute infarction. No extra-axial fluid collection. Calvarium is intact. Paranasal sinuses and mastoid air cells are clear. Impression: Normal noncontrast head CT. No evidence for acute intracranial pathology or trauma/injury. Electronically Signed by Tito Ram MD 07/19/2018 05:35 P
[2018-07-19 17:58] LABS: BLOOD UREA NITROGEN 15 MG/DL (7-18); CALCIUM LEVEL 8.8 MG/DL (8.5-10.1); CARBON DIOXIDE LEVEL 27 MEQ/L (21-32); CHLORIDE LEVEL 104 MEQ/L (98-107); CPK CREATINE PHOSPHOKINASE 416 U/L (39-308); CREATININE FOR GFR 1.41 MG/DL (0.70-1.30); ETHYL ALCOHOL (ETHANOL) < 0.003 % (0.000-0.010); GLOMERULAR FILTRATION RATE > 60.0 (>60); GLUCOSE, FASTING 140 MG/DL (70-100); MB/CK RELATIVE INDEX 0.53 (< OR =4); POTASSIUM SERUM 3.5 MEQ/L (3.5-5.1); SODIUM LEVEL 139 MEQ/L (136-145); TROPONIN I < 0.02 NG/ML (< 0.10)
[2018-07-19 18:25] LABS: INR 1.07; PROTHROMBIN TIME 14.1 SECONDS (12.1-14.4)
[2018-07-19 20:13] LABS: AMPHETAMINES LEVEL URINE NEGATIVE (NEGATIVE); BARBITURATES URINE NEGATIVE (NEGATIVE); BENZODIAZEPINES URINE NEGATIVE (NEGATIVE); CANNABINOIDS URINE NEGATIVE (NEGATIVE); COCAINE METABOLITE URINE NEGATIVE (NEGATIVE); METHADONE URINE NEGATIVE (NEGATIVE); OPIATES URINE NEGATIVE (NEGATIVE); PHENCYCLIDINE URINE NEGATIVE (NEGATIVE)
[2018-07-19 20:31] VITALS: BP 141/83
--- NOTE | 2018-07-19 20:53 | ECGEPIP ---
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
== END 2018-07-19 20:36 | disposition home or self-care (01) ==
LOC: M ED 16:45
DX: R55 Syncope and collapse (principal); J45.909 Unspecified asthma, uncomplicated; Z79.899 Other long term (current) drug therapy; Z79.52 Long term (current) use of systemic steroids
CPT/HCPCS: 70450; 80048; 80307; 82550; 82553; 84484; 85025; 85610; 93005; 96360; 99284; G0480

== ENCOUNTER 2018-08-08 15:12 | Inpatient (IN) | payer OTHER ==
[~2018-08-08] VITALS: Ht 188 cm; Wt 108.4 kg
[~2018-08-08 15:12] MED LIST changes: +LEXA1TAB2 PO; +MAXA10TA14 PO; +PRED10TA2 PO; -TRAZ-160 PO; +TRAZ-252; +TRAZ-252 PO
[2018-08-08] MEDS ORDERED: 12 H0.05 ×2 (15:18→17:02)
[2018-08-08] MEDS ORDERED: AUGM875T28 PO (15:18)
[2018-08-08] MEDS ORDERED: ONDA4TAB6 PO (15:18)
[2018-08-08] MEDS ORDERED: D 1010004 PO (15:18)
[2018-08-08 16:00] LABS: HEMATOCRIT 41.1 % (42.0-52.0); HEMOGLOBIN 13.6 g/dl (13.5-17.5); MEAN CORPUSCULAR HEMOGLOBIN 30.8 pg (27.0-33.0); MEAN CORPUSCULAR HGB CONC 33.1 g/dl (32.0-36.5); MEAN CORPUSCULAR VOLUME 93.2 fl (80.0-96.0); PLATELET COUNT, AUTOMATED 235 10^3/uL (150-450); RED BLOOD COUNT 4.41 10^6/uL (4.30-6.10); WHITE BLOOD COUNT 6.2 10^3/uL (4.0-10.0)
[2018-08-08 16:22] LABS: AMPHETAMINES LEVEL URINE NEGATIVE (NEGATIVE); BARBITURATES URINE NEGATIVE (NEGATIVE); BENZODIAZEPINES URINE NEGATIVE (NEGATIVE); CANNABINOIDS URINE NEGATIVE (NEGATIVE); COCAINE METABOLITE URINE NEGATIVE (NEGATIVE); METHADONE URINE NEGATIVE (NEGATIVE); OPIATES URINE NEGATIVE (NEGATIVE); PHENCYCLIDINE URINE NEGATIVE (NEGATIVE)
[2018-08-08 16:30] LABS: ACETAMINOPHEN LEVEL < 2.0 UG/ML (10.0-30.0); ALBUMIN 3.5 GM/DL (3.2-5.2); ALT/SGPT 21 U/L (12-78); BILIRUBIN,DIRECT 0.2 MG/DL (0.0-0.2); BILIRUBIN,TOTAL 0.5 MG/DL (0.2-1.0); BLOOD UREA NITROGEN 14 MG/DL (7-18); CALCIUM LEVEL 8.6 MG/DL (8.5-10.1); CARBON DIOXIDE LEVEL 31 MEQ/L (21-32); CHLORIDE LEVEL 108 MEQ/L (98-107); CREATININE FOR GFR 1.19 MG/DL (0.70-1.30); ETHYL ALCOHOL (ETHANOL) < 0.003 % (0.000-0.010); GLOMERULAR FILTRATION RATE > 60.0 (>60); GLUCOSE, FASTING 81 MG/DL (70-100); SALICYLATE LEVEL < 1.7 MG/DL (5.0-30.0); SODIUM LEVEL 143 MEQ/L (136-145); TOTAL PROTEIN 7.1 GM/DL (6.4-8.2)
[2018-08-08] MEDS ORDERED: TRAZ-189 PO (16:56)
[2018-08-08] MEDS ORDERED: OCEA0.654 (17:02)
[2018-08-08] MEDS ORDERED: REFR0.5D8 OP (17:02)
[2018-08-08] MEDS ORDERED: PREV5000 TEETH (17:02)
[2018-08-08] MEDS ORDERED: MUCI60TA7 PO (17:02)
[2018-08-08] MEDS ORDERED: OXYMETAZOLINE NASAL SPRAY (AFRIN) PRN (19:30)
[2018-08-08] MEDS ORDERED: MOM 30ML SUSPENSION UDC PO PRN (19:30)
[2018-08-08] MEDS ORDERED: ONDANSETRON 4 MG ORAL DISINTEGRATING TAB (Q0162 PER 1MG) PO PRN (19:30)
[2018-08-08] MEDS ORDERED: MAALOX 30 ML SUSP *UDC PO PRN (19:30)
[2018-08-08] MEDS ORDERED: SODIUM CHLORIDE NASAL 0.65% SPRAY BTL (OCEAN) PRN (19:30)
[2018-08-08] MEDS ORDERED: RIZATRIPTAN BENZOATE 10 MG TAB PO PRN (19:30)
[2018-08-08] MEDS ORDERED: ALBUTEROL 90 MCG/ACT 8GM HFA INHALER INH PRN (19:30)
[2018-08-08] MEDS ORDERED: POLYVINYL ALCOHOL OPHTH SOLN 15 ML(LIQUITEARS) OU PRN (19:30)
[2018-08-08] MEDS ORDERED: ACETAMINOPHEN TAB 650MG DOSE (2X325MG) PO PRN (19:30)
[2018-08-08] MEDS ORDERED: ENTER DRUG NAME HERE (PATIENT'S OWN MED) TOP SCH (19:45)
[2018-08-08] MEDS ORDERED: OLANZapine ORAL DISINTEGRATING TAB 5MG PO PRN (20:00)
[2018-08-08 21:25] VITALS: BP 107/66
[2018-08-08] MEDS: guaiFENesin ER 600 MG TAB PO SCH (22:10)
[2018-08-08] MEDS: traZODone 100 MG TAB PO SCH (22:10)
[2018-08-08] MEDS: AUGMENTIN 875 MG TAB PO SCH (22:10)
[2018-08-09] MEDS: guaiFENesin ER 600 MG TAB PO SCH ×2 (09:16→21:35)
[2018-08-09] MEDS: VITAMIN D 1,000 INTERNATIONAL UNITS TABLET PO SCH (09:16)
[2018-08-09] MEDS: ESCITALOPRAM OXALATE 10 MG TAB (LEXAPRO) PO SCH (09:16)
[2018-08-09] MEDS: AUGMENTIN 875 MG TAB PO SCH ×2 (09:16→21:35)
--- NOTE | 2018-08-09 11:23 | HPEPDOC ---
General Date of Admission Aug 08, 2018 at 19:23 Date of Service: Aug 09, 2018 Attending Physician: BEBE HILL MD Chief Complaint The patient is a 37-year-old male admitted with a reason for visit of Unspecified Depressive D/O. Source: Patient, RN/ History of Present Illness Patient is a 37-year-old male, past medical history significant for depression, asthma, admitted on account of acute depressive episode with suicidal ideation. Patient was admitted to inpatient psychiatric unit for evaluation and management by the psychiatric team. Medical team was consulted for evaluation, assessment and management of any possible underlying medical comorbidities. On evaluation, he denies any chills, fever, chest pain, shortness of breath, he uses albuterol as needed for asthma. Home Medications Scheduled Amoxicillin/Potassium Clav (Augmentin 875-125 Tablet) 1 Each Tablet, 1 TAB PO BID, (Reported) Cholecalciferol (Vitamin D3) (Vitamin D3) 1,000 Unit Capsule, 1,000 UNIT PO DAILY, (Reported) Escitalopram Oxalate (Lexapro) 20 Mg Tablet, 20 MG PO DAILY, (Reported) Sodium Fluoride/Potassium Nit (Prevident 5000 Sensitive Paste) 100 Ml Paste..ml., 1 DOSE TEETH BID, (Reported) Trazodone HCl (Trazodone HCl) 100 Mg Tablet, 100 MG PO QHS, (Reported) Scheduled PRN Albuterol Sulfate (Proair Hfa) 108 Mcg/Act Aer, 2 PUFF INH Q4H PRN for SHORTNESS OF BREATH, (Reported) Carboxymethylcellulose Sodium (Refresh Tears) 15 Ml Drops, 0.5 % OP Q6H PRN for DRY EYES, (Reported) Guaifenesin/Pseudoephedrne HCl (Mucinex D ER 600-60 mg Tablet) 1 Each Tab.er.12h, 1 TAB PO BID PRN for CONGESTION, (Reported) Ondansetron (Ondansetron Odt) 4 Mg Tab.rapdis, 4 MG PO Q6H PRN for NAUSEA OR VOMITING, (Reported) Oxymetazoline HCl (No Drip) 0.05% [place], 1 SPRAY NA BID PRN for NASAL CONGESTION, (Reported) Rizatriptan Benzoate (Maxalt) 10 Mg Tablet, 10 MG PO BID PRN for MIGRAINE, (Reported) Sodium Chloride ([place]) 104 Ml [place], 2 SPRAY NA Q6H PRN for CONGESTION, (Reported) Allergies Coded Allergies: No Known Allergies (Unverified , 11/18/16) Past Medical History Medical History Asthma Depression Suicide attempt Suicide ideation Surgical History Denies surgical history Family History Mother with myasthenia gravis Social History * Smoker: Denies Alcohol: Denies Drugs: denies Psychosocial History: Depression, Emotional problems A-FIB/CHADSVASC A-FIB History Current/History of A-Fib/PAF?: No Current PO Anticoag Therapy: No Review of Systems Other systems A pertinent 10 point review of systems is completed, negative except as stated in the history of presenting illness Physical Examination General Exam: Positive: Alert, Cooperative, No Acute Distress Eye Exam: Positive: PERRLA, EOMI ENT Exam: Positive: Atraumatic, Mucous membr. moist/pink, Pharynx Normal, Tongue Midline Neck Exam: Positive: Supple; Negative: JVD, thyromegaly Chest Exam: Positive: Clear to auscultation, Normal air movement; Negative: Rales, Rhonchi Heart Exam: Positive: Rate Normal, Regular Rhythm Abdomen Exam: Positive: Normal bowel sounds, Soft; Negative: Tenderness Extremity Exam: Positive: Normal pulses; Negative: Clubbing, Cyanosis, Edema Skin Exam: Positive: Nl turgor and temperature; Negative: Rash Neuro Exam: Positive: Normal Speech, Strength at 5/5 X4 ext Psych Exam: Positive: Mental status NL, Oriented x 3 Vital Signs Vital Signs Date Time Temp Pulse Resp B/P (MAP) Pulse Ox O2 Delivery O2 Flow Rate FiO2 08/08/18 21:25 96.9 93 16 107/66 (80) 99 08/08/18 20:32 Room Air Laboratory Data Labs 24H Laboratory Tests 2 08/08/18 15:49: Nucleated Red Blood Cells % (auto) 0.0, Anion Gap 4L, Glomerular Filtration Rate > 60.0, Calcium Level 8.6, Aspartate Amino Transf (AST/SGOT) 16, Alanine Aminotransferase (ALT/SGPT) 21, Alkaline Phosphatase 67, Total Bilirubin 0.5, Direct Bilirubin 0.2, Total Protein 7.1, Albumin 3.5, Albumin/Globulin Ratio 0.97L, Thyroid Stimulating Hormone (TSH) 1.570, Salicylates Level < 1.7L, Urine Amphetamines Screen NEGATIVE, Urine Benzodiazepines Screen NEGATIVE, Urine Opiates Screen NEGATIVE, Urine Methadone Screen NEGATIVE, Acetaminophen Level < 2.0L, Urine Barbiturates Screen NEGATIVE, Urine Phencyclidine Screen NEGATIVE, Urine Cocaine Metabolite Screen NEGATIVE, Urine Cannabinoids Screen NEGATIVE, Ethyl Alcohol Level < 0.003 CBC/BMP Laboratory Tests 08/08/18 15:49 Red Blood Count 4.41, Mean Corpuscular Volume 93.2, Mean Corpuscular Hemoglobin 30.8, Mean Corpuscular Hemoglobin Concent 33.1, Red Cell Distribution Width 12.7 Assessment/Plan Asthma -Currently without acute exacerbation -Albuterol as needed Depression with suicidal ideation -Management by primary team DVT prophylaxis -Frequently ambulatory and no indication for prophylaxis at this time Plan / VTE VTE Prophylaxis Ordered?: No VTE Exclusion Mechanical Proph: Low Risk for VTE 

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
[2018-08-09 12:32] VITALS: BP 124/71
[2018-08-09 18:00] VITALS: BP 126/65
[2018-08-09] MEDS: traZODone 100 MG TAB PO SCH (21:35)
[2018-08-10 07:00] VITALS: BP 122/77
[2018-08-10] MEDS: guaiFENesin ER 600 MG TAB PO SCH ×2 (09:13→21:57)
[2018-08-10] MEDS: AUGMENTIN 875 MG TAB PO SCH ×2 (09:13→21:57)
[2018-08-10] MEDS: VITAMIN D 1,000 INTERNATIONAL UNITS TABLET PO SCH (09:13)
[2018-08-10] MEDS: ESCITALOPRAM OXALATE 10 MG TAB (LEXAPRO) PO SCH (09:14)
--- NOTE | 2018-08-10 14:04 | MHIPNPDOC ---
[facility] Progress Note Progress Note DATE OF SERVICE: 08/10/18 HISTORY: Numerous hospitalizations for this 37-year-old male who has numerous life stressors including the of his brother by suicide and marital difficu lties. He has been hospitalized locally as well as in [place]. VITAL SIGNS: See below. NEW TEST RESULTS: None. CURRENT MEDICATIONS: See below. MENTAL STATUS EXAMINATION: Patient is a 37-year old male, who is stressed by marital difficulties which he had, guilt over his brother's and stress in the [employer]. Speech: Is rapid and soft. Language skills are intact. Thought processes including:, Intact. Thought content:. No gross disturbances. Abstract reasoning, and computation: able To abstract. Description of associations:. No loose associations. Description of abnormal or psychotic thoughts:. No psychotic thought. Judgment: Fair. Insight:. Fair. Orientation: 3. Recent and remote memory: Intact. Attention span and concentration: Intact. Language: As above. Fund of knowledge:, Full. Mood:, Sad, anxious. Affect:, Congruent. DIAGNOSES: 1., Major depression. 2., Anxiety. 3., Multiple stressors. ASSESSMENT:. Continues depressed and anxious MANAGEMENT PLAN:. We will change his Lexapro 20 to Celexa 40. TIME SPENT: 35 minutes. Vital Signs Vital Signs Date Time Temp Pulse Resp B/P (MAP) Pulse Ox O2 Delivery O2 Flow Rate FiO2 08/10/18 07:00 98.3 63 16 122/77 (92) 08/08/18 21:25 99 08/08/18 20:32 Room Air Current Medications Current Medications Acetaminophen (Tylenol Tab) 650 mg Q6HP PRN PO HEADACHE or DISCOMFORT; Start 08/08/18 at 19:30 Al Hydrox/Mg Hydrox/Simethicone (Mylanta) 30 ml Q4HP PRN PO HEARTBURN/I NDIGESTION; Start 08/08/18 at 19:30 Albuterol Sulfate (Proventil, Ventolin Hfa) 2 puff Q4HP PRN INH SHORTNESS OF BREATH; Start 08/08/18 at 19:30 Amoxicillin/ Clavulanate Potassium (Augmentin) 875 mg BID PO Last administered on 08/10/18at 09:13; Start 08/08/18 at 21:00 Artificial Tears ([place] Tears) 2 drop QIDP PRN OU DRY EYES; Start 08/08/18 at 19:30 Citalopram Hydrobromide (CeleXA) 40 mg DAILY PO ; Start 08/11/18 at 09:00 Escitalopram Oxalate (Lexapro) 20 mg DAILY PO Last administered on 08/10/18at 09:14; Start 08/09/18 at 09:00; Stop 08/10/18 at 13:29; Status DC Guaifenesin (Mucinex Tab Er) 600 mg BID PO Last administered on 08/10/18at 09:13; Start 08/08/18 at 21:00 Home Med (Med Rec Complete!) ASDIRECTED XX ; Start 08/08/18 at 18:30; Stop 08/08/18 at 18:35; Status DC Magnesium Hydroxide (Milk Of Magnesia) 30 ml DAILYPRN PRN PO CONSTIPATION; Start 08/08/18 at 19:30 Olanzapine (ZyPREXA ZYDIS) 5 mg Q4HP PRN PO AGITATION; Start 08/08/18 at 20:00 Ondansetron HCl (Zofran Odt) 4 mg Q6HP PRN PO NAUSEA OR VOMITING; Start 08/08/18 at 19:30 Oxymetazoline HCl (Afrin) 2 spray Q12HP PRN NA NASAL CONGESTION; Start 08/08/18 at 19:30 Patient Own Medication (Patient'S Own Med) PREVIDENT 1 APLCT TO TE... ASDIRECTED TOP ; Start 08/08/18 at 19:45; Status UNV Rizatriptan Benzoate (Maxalt) 10 mg Q2HP PRN PO MIGRAINE; Start 08/08/18 at 19:30 Sodium Chloride ([place] Nasal [place]) 2 spray Q6HP PRN NA NASAL CONGESTION; Start 08/08/18 at 19:30 Trazodone HCl (Desyrel) 100 mg QHS PO Last administered on 08/09/18at 21:35; St art 08/08/18 at 21:00 Vitamin D (Vitamin D) 1,000 units DAILY PO Last administered on 08/10/18at 09:13; Start 08/09/18 at 09:00 Allergies Coded Allergies: No Known Allergies (Unverified , 11/18/16) LUCIEN SMALL MD Aug 10, 2018 14:04
[2018-08-10 18:37] VITALS: BP 123/58
[2018-08-10] MEDS: traZODone 100 MG TAB PO SCH (22:30)
[2018-08-11 06:50] VITALS: BP 111/64
--- NOTE | 2018-08-11 08:54 | MHIPNPDOC ---
[facility] Progress Note Progress Note DATE OF SERVICE: 08/11/18 HISTORY: 37-year-old male with numerous psychiatric admissions. Has had numerous profound stressors of and marital issues that have continued and required him to be readmitted numerous times. VITAL SIGNS: See below. NEW TEST RESULTS: None. CURRENT MEDICATIONS: See below. MENTAL STATUS EXAMINATION: Patient is a 37-year old male, who is attempting to process recent of brother who he feels guilty about and is having continued marital problems. He is in the [place] [employer] [facility] unit. Speech: Is. Normal. Language skills are. No disturbances. Thought processes including:. No gross abnormalities. Thought content:. No gross abnormalities. Abstract reasoning, and computation:, Able to abstract. Description of associations:. Loose associations. Description of abnormal or psychotic thoughts:. No gross abnormal or psychotic thoughts. Judgment:. Fair. Insight:, Fair. Orientation: 3. Recent and remote memory: Intact. Attention span and concentration:. No gross disturbance. Language: As above. Fund of knowledge:, Full. Mood:, Sad. Affect:, Congruent. DIAGNOSES: 1., Major depression. 2., Numerous stressors. . ASSESSMENT:, Numerous stressors have led this depressed individual to be admitted and treated in numerous psychiatric facilities MANAGEMENT PLAN: Observation and change of Lexapro to Celexa 40. TIME SPENT: 35 minutes. Vital Signs Vital Signs Date Time Temp Pulse Resp B/P (MAP) Pulse Ox O2 Delivery O2 Flow Rate FiO2 08/11/18 06:50 97.4 59 14 111/64 (80) 08/08/18 21:25 99 08/08/18 20:32 Room Air Current Medications Current Medications Acetaminophen (Tylenol Tab) 650 mg Q6HP PRN PO HEADACHE or DISCOMFORT; Start 08/08/18 at 19:30 Al Hydrox/Mg Hydrox/Simethicone (Mylanta) 30 ml Q4HP PRN PO HEARTBURN/INDIGESTION; Start 08/08/18 at 19:30 Albuterol Sulfate (Proventil, Ventolin Hfa) 2 puff Q4HP PRN INH SHORTNESS OF BREATH; Start 08/08/18 at 19:30 Amoxicillin/ Clavulanate Potassium (Augmentin) 875 mg BID PO Last administered on 08/10/18at 21:57; Start 08/08/18 at 21:00 Artificial Tears ([place] Tears) 2 drop QIDP PRN OU DRY EYES; Start 08/08/18 at 19:30 Citalopram Hydrobromide (CeleXA) 40 mg DAILY PO ; Start 08/11/18 at 09:00 Escitalopram Oxalate (Lexapro) 20 mg DAILY PO Last administered on 08/10/18at 09:14; Start 08/09/18 at 09:00; Stop 08/10/18 at 13:29; Status DC Guaifenesin (Mucinex Tab Er) 600 mg BID PO Last administered on 08/10/18at 21:57; Start 08/08/18 at 21:00 Home Med (Med Rec Complete!) ASDIRECTED XX ; Start 08/08/18 at 18:30; Stop 08/08/18 at 18:35; Status DC Magnesium Hydroxide (Milk Of Magnesia) 30 ml DAILYPRN PRN PO CONSTIPATION; Start 08/08/18 at 19:30 Olanzapine (ZyPREXA ZYDIS) 5 mg Q4HP PRN PO AGITATION; Start 08/08/18 at 20:00 Ondansetron HCl (Zofran Odt) 4 mg Q6HP PRN PO NAUSEA OR VOMITING; Start 08/08/18 at 19:30 Oxymetazoline HCl (Afrin) 2 spray Q12HP PRN NA NASAL CONGESTION; Start 08/08/18 at 19:30 Patient Own Medication (Patient'S Own Med) PREVIDENT 1 APLCT TO TE... ASDIRECTED TOP ; Start 08/08/18 at 19:45; Status UNV Rizatriptan Benzoate (Maxalt) 10 mg Q2HP PRN PO MIGRAINE; Start 08/08/18 at 19:30 Sodium Chloride ([place] Nasal [place]) 2 spray Q6HP PRN NA NASAL CONGESTION; Start 08/08/18 at 19:30 Trazodone HCl (Desyrel) 100 mg QHS PO Last administered on 08/10/18at 22:30; Start 08/08/18 at 21:00 Vitamin D (Vitamin D) 1,000 units DAILY PO Last administered on 08/10/18at 09:13; Start 08/09/18 at 09:00 Allergies Coded Allergies: No Known Allergies (Unverified , 11/18/16) LUCIEN SMALL MD Aug 11, 2018 08:54
[2018-08-11] MEDS: VITAMIN D 1,000 INTERNATIONAL UNITS TABLET PO SCH (09:03)
[2018-08-11] MEDS: guaiFENesin ER 600 MG TAB PO SCH ×2 (09:03→21:52)
[2018-08-11] MEDS: CitaloPRAM (CeleXA) 20 MG TAB PO SCH (09:03)
[2018-08-11] MEDS: AUGMENTIN 875 MG TAB PO SCH ×2 (09:03→21:52)
[2018-08-11 18:00] VITALS: BP 122/75
[2018-08-11] MEDS: traZODone 100 MG TAB PO SCH (23:53)
[2018-08-12 06:33] VITALS: BP 125/68
[2018-08-12] MEDS: CitaloPRAM (CeleXA) 20 MG TAB PO SCH (08:36)
[2018-08-12] MEDS: guaiFENesin ER 600 MG TAB PO SCH ×2 (08:36→22:08)
[2018-08-12] MEDS: AUGMENTIN 875 MG TAB PO SCH ×2 (08:36→22:08)
[2018-08-12] MEDS: VITAMIN D 1,000 INTERNATIONAL UNITS TABLET PO SCH (08:36)
--- NOTE | 2018-08-12 10:42 | MHIPNPDOC ---
[facility] Progress Note Progress Note DATE OF SERVICE: 08/12/18 HISTORY: 37-year-old male with migraines of 3 weeks duration has been taking medication for migraine, but is concerned that antidepressants may be making it worse. VITAL SIGNS: See below. NEW TEST RESULTS: None. CURRENT MEDICATIONS: See below. MENTAL STATUS EXAMINATION: Patient is a 37-year old male, who is planning to return to outpatient. Speech: Is normal with no gross distortions. Language skills are normal with no distortions. Thought processes including: Denies hallucinations, delusions, obsessions, compulsions, phobias. Thought content: As above. Abstract reasoning, and computation:, Able to abstract. Description of associations:. No loose associations. Description of abnormal or psychotic thoughts:. No psychotic thought noted. Judgment: Intact. Insight:. Fair. Orientation:, Fully oriented 3. Recent and remote memory:. No disturbance of recent or remote memory. Attention span and concentration:, Attention span, intact. Language:. No disturbance of language. Fund of knowledge:. Full fund of knowledge. Mood:, Euthymic. Affect:, Congruent. DIAGNOSES: 1. Major depression. 2., Numerous traumatic stressors. . ASSESSMENT: As above MANAGEMENT PLAN:. Patient should be monitored closely as he has had numerous traumatic stressors leading to hospitalization. TIME SPENT:. 35 minutes. Vital Signs Vital Signs Date Time Temp Pulse Resp B/P (MAP) Pulse Ox O2 Delivery O2 Flow Rate FiO2 08/12/18 06:33 97.9 53 18 125/68 (87) 08/08/18 21:25 99 08/08/18 20:32 Room Air Current Medications Current Medications Acetaminophen (Tylenol Tab) 650 mg Q6HP PRN PO HEADACHE or DISCOMFORT; Start 08/08/18 at 19:30 Al Hydrox/Mg Hydrox/Simethicone (Mylanta) 30 ml Q4HP PRN PO HEARTBURN/INDIGESTION; Start 08/08/18 at 19:30 Albuterol Sulfate (Proventil, Ventolin Hfa) 2 puff Q4HP PRN INH SHORTNESS OF BREATH; Start 08/08/18 at 19:30 Amoxicillin/ Clavulanate Potassium (Augmentin) 875 mg BID PO Last administered on 08/12/18at 08:36; Start 08/08/18 at 21:00 Artificial Tears ([place] Tears) 2 drop QIDP PRN OU DRY EYES; Start 08/08/18 at 19:30 Citalopram Hydrobromide (CeleXA) 40 mg DAILY PO Last administered on 08/12/18at 08:36; Start 08/11/18 at 09:00 Escitalopram Oxalate (Lexapro) 20 mg DAILY PO Last administered on 08/10/18at 09:14; Start 08/09/18 at 09:00; Stop 08/10/18 at 13:29; Status DC Guaifenesin (Mucinex Tab Er) 600 mg BID PO Last administered on 08/12/18at 08:36; Start 08/08/18 at 21:00 Home Med (Med Rec Complete!) ASDIRECTED XX ; Start 08/08/18 at 18:30; Stop 08/08/18 at 18:35; Status DC Magnesium Hydroxide (Milk Of Magnesia) 30 ml DAILYPRN PRN PO CONSTIPATION; Start 08/08/18 at 19:30 Olanzapine (ZyPREXA ZYDIS) 5 mg Q4HP PRN PO AGITATION; Start 08/08/18 at 20:00 Ondansetron HCl (Zofran Odt) 4 mg Q6HP PRN PO NAUSEA OR VOMITING; Start 08/08/18 at 19:30 Oxymetazoline HCl (Afrin) 2 spray Q12HP PRN NA NASAL CONGESTION; Start 08/08/18 at 19:30 Patient Own Medication (Patient'S Own Med) PREVIDENT 1 APLCT TO TE... ASDIRECTED TOP ; Start 08/08/18 at 19:45; Status UNV Rizatriptan Benzoate (Maxalt) 10 mg Q2HP PRN PO MIGRAINE; Start 08/08/18 at 19:30 Sodium Chloride ([place] Nasal [employer]) 2 spray Q6HP PRN NA NASAL CONGESTION; Start 08/08/18 at 19:30 Trazodone HCl (Desyrel) 100 mg QHS PO Last administered on 08/11/18at 23:53; Start 08/08/18 at 21:00 Vitamin D (Vitamin D) 1,000 units DAILY PO Last administered on 08/12/18at 08:36; Start 08/09/18 at 09:00 Allergies Coded Allergies: No Known Allergies (Unverified , 11/18/16) LUCIEN SMALL MD Aug 12, 2018 10:42
[2018-08-12 18:00] VITALS: BP 120/64
[2018-08-12] MEDS: traZODone 100 MG TAB PO SCH (22:08)
[2018-08-13 06:14] VITALS: BP 119/66
[2018-08-13] MEDS: VITAMIN D 1,000 INTERNATIONAL UNITS TABLET PO SCH (09:57)
[2018-08-13] MEDS: AUGMENTIN 875 MG TAB PO SCH ×2 (09:57→22:10)
[2018-08-13] MEDS: CitaloPRAM (CeleXA) 20 MG TAB PO SCH (09:58)
[2018-08-13] MEDS: guaiFENesin ER 600 MG TAB PO SCH ×2 (09:58→22:10)
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
[2018-08-13 18:08] VITALS: BP 133/79
[2018-08-13] MEDS: traZODone 100 MG TAB PO SCH (23:56)
[2018-08-14 06:36] VITALS: BP 126/70
[2018-08-14] MEDS: VITAMIN D 1,000 INTERNATIONAL UNITS TABLET PO SCH (09:07)
[2018-08-14] MEDS: AUGMENTIN 875 MG TAB PO SCH ×2 (09:07→22:01)
[2018-08-14] MEDS: CitaloPRAM (CeleXA) 20 MG TAB PO SCH (09:07)
[2018-08-14] MEDS: guaiFENesin ER 600 MG TAB PO SCH ×2 (09:07→22:01)
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
[2018-08-14 17:49] VITALS: BP 118/82
[2018-08-14 18:00] VITALS: BP 118/82
[2018-08-14] MEDS: traZODone 100 MG TAB PO SCH (23:04)
[2018-08-15 06:37] VITALS: BP 110/71
[2018-08-15] MEDS: CitaloPRAM (CeleXA) 20 MG TAB PO SCH (09:26)
[2018-08-15] MEDS: guaiFENesin ER 600 MG TAB PO SCH ×2 (09:26→22:12)
[2018-08-15] MEDS: VITAMIN D 1,000 INTERNATIONAL UNITS TABLET PO SCH (09:26)
[2018-08-15] MEDS: AUGMENTIN 875 MG TAB PO SCH (09:26)
[2018-08-15 18:19] VITALS: BP 120/59
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
[2018-08-15] MEDS: traZODone 100 MG TAB PO SCH (23:59)
[2018-08-16 06:41] VITALS: BP 112/63
[2018-08-16] MEDS ORDERED: CELE20TA PO (09:15)
[2018-08-16] MEDS ORDERED: TRAZ10TA PO (09:15)
[2018-08-16] MEDS: VITAMIN D 1,000 INTERNATIONAL UNITS TABLET PO SCH (10:04)
[2018-08-16] MEDS: guaiFENesin ER 600 MG TAB PO SCH (10:04)
[2018-08-16] MEDS: CitaloPRAM (CeleXA) 20 MG TAB PO SCH (10:04)
== END 2018-08-16 10:45 | disposition home or self-care (01) | DRG 881 ==
LOC: M ED 15:12 → M ED INP 19:23 → M PSY 20:50
PROVIDERS: ADMIT Psychiatry & Neurology Psychiatry; ATTEND Psychiatry & Neurology Psychiatry
DX: F32.9 Major depressive disorder, single episode, unspecified (principal); R45.851 Suicidal ideations; Z63.5 Disruption of family by separation and divorce; Z79.899 Other long term (current) drug therapy; J45.909 Unspecified asthma, uncomplicated; G43.909 Migraine, unspecified, not intractable, without status migrainosus; F41.9 Anxiety disorder, unspecified; F43.20 Adjustment disorder, unspecified

== ENCOUNTER 2018-09-06 12:52 | Emergency (ER) | payer OTHER ==
[~2018-09-06] VITALS: Ht 188 cm; Wt 111.3 kg
[~2018-09-06 12:52] MED LIST changes: +12 H0.05; +AUGM875T28 PO; +CELE20TA PO; +D 1010004 PO; +MUCI60TA7 PO; +OCEA0.654; +ONDA4TAB6 PO; +PREV5000 TEETH; +REFR0.5D8 OP; +TRAZ-189 PO; +TRAZ10TA PO
[2018-09-06 14:12] LABS: HEMATOCRIT 41.4 % (42.0-52.0); HEMOGLOBIN 13.7 g/dl (13.5-17.5); MEAN CORPUSCULAR HEMOGLOBIN 30.9 pg (27.0-33.0); MEAN CORPUSCULAR HGB CONC 33.1 g/dl (32.0-36.5); MEAN CORPUSCULAR VOLUME 93.2 fl (80.0-96.0); PLATELET COUNT, AUTOMATED 180 10^3/uL (150-450); RED BLOOD COUNT 4.44 10^6/uL (4.30-6.10); WHITE BLOOD COUNT 5.3 10^3/uL (4.0-10.0)
[2018-09-06 14:42] LABS: ACETAMINOPHEN LEVEL < 2.0 UG/ML (10.0-30.0); ALT/SGPT 33 U/L (12-78); BILIRUBIN,DIRECT 0.2 MG/DL (0.0-0.2); BILIRUBIN,TOTAL 0.7 MG/DL (0.2-1.0); BLOOD UREA NITROGEN 16 MG/DL (7-18); CALCIUM LEVEL 8.9 MG/DL (8.5-10.1); CARBON DIOXIDE LEVEL 31 MEQ/L (21-32); CHLORIDE LEVEL 104 MEQ/L (98-107); CREATININE FOR GFR 1.37 MG/DL (0.70-1.30); ETHYL ALCOHOL (ETHANOL) 0.003 % (0.000-0.010); GLOMERULAR FILTRATION RATE > 60.0 (>60); GLUCOSE, FASTING 80 MG/DL (70-100); POTASSIUM SERUM 4.3 MEQ/L (3.5-5.1); SALICYLATE LEVEL < 1.7 MG/DL (5.0-30.0); SODIUM LEVEL 138 MEQ/L (136-145); TOTAL PROTEIN 7.3 GM/DL (6.4-8.2)
[2018-09-06 17:30] LABS: AMPHETAMINES LEVEL URINE NEGATIVE (NEGATIVE); BARBITURATES URINE NEGATIVE (NEGATIVE); BENZODIAZEPINES URINE NEGATIVE (NEGATIVE); CANNABINOIDS URINE NEGATIVE (NEGATIVE); COCAINE METABOLITE URINE NEGATIVE (NEGATIVE); METHADONE URINE NEGATIVE (NEGATIVE); OPIATES URINE NEGATIVE (NEGATIVE); PHENCYCLIDINE URINE NEGATIVE (NEGATIVE)
[2018-09-07 04:28] VITALS: BP 122/86
--- NOTE | 2018-09-07 20:17 | ECGEPIP ---
[facility] - ED Test Date: 2018-09-06 Pat Name: SCOOBY MEDEROS Department: Room: - Gender: Male Sample Checker: shilo : 1980 Requested By: LISSY Schroeder Order Number: [id number] Reading MD: Adalberto Ye Measurements Intervals [place] Rate: 57 P: 57 TX: 154 QRS: 60 QRSD: 101 T: 34 QT: 424 QTc: 415 Interpretive Statements SINUS BRADYCARDIA NONSPECIFIC [facility] T WAVE CHANGES CW 07/19/[address] [facility] MORPHOLOGY Electronically Signed on 09-07-2018 20:16:41 EDT by Adalberto Ye
== END 2018-09-07 04:33 ==
LOC: M ED 12:52
DX: R45.851 Suicidal ideations (principal); R00.1 Bradycardia, unspecified; F41.9 Anxiety disorder, unspecified; M54.9 Dorsalgia, unspecified; R51 Headache; Z79.899 Other long term (current) drug therapy
CPT/HCPCS: 80048; 80076; 80307; 84443; 85027; 93005; 99285; G0480

== ENCOUNTER → 2019-01-23 | Outpatient (REF) | payer OTHER | LOC: M LAB REF 12:51 | PROVIDERS: ATTEND Internal Medicine Nephrology | DX: R80.9 Proteinuria, unspecified (principal) ==

== ENCOUNTER 2019-03-20 10:26 | Emergency (ER) | payer OTHER ==
[~2019-03-20] VITALS: Ht 188 cm; Wt 114.5 kg
[~2019-03-20 10:26] MED LIST changes: -TRAZ10TA PO; +TRAZ1TAB12 PO
[2019-03-20 11:02] LABS: HEMATOCRIT 42.1 % (42.0-52.0); HEMOGLOBIN 13.8 g/dl (13.5-17.5); MEAN CORPUSCULAR HEMOGLOBIN 30.9 pg (27.0-33.0); MEAN CORPUSCULAR HGB CONC 32.8 g/dl (32.0-36.5); MEAN CORPUSCULAR VOLUME 94.2 fl (80.0-96.0); PLATELET COUNT, AUTOMATED 186 10^3/uL (150-450); RED BLOOD COUNT 4.47 10^6/uL (4.30-6.10)
[2019-03-20 11:27] LABS: AMPHETAMINES LEVEL URINE NEGATIVE (NEGATIVE); BARBITURATES URINE NEGATIVE (NEGATIVE); BENZODIAZEPINES URINE NEGATIVE (NEGATIVE); CANNABINOIDS URINE NEGATIVE (NEGATIVE); COCAINE METABOLITE URINE NEGATIVE (NEGATIVE); METHADONE URINE NEGATIVE (NEGATIVE); OPIATES URINE NEGATIVE (NEGATIVE); PHENCYCLIDINE URINE NEGATIVE (NEGATIVE)
[2019-03-20 11:36] LABS: ACETAMINOPHEN LEVEL < 2.0 UG/ML (10.0-30.0); ALBUMIN 3.8 GM/DL (3.2-5.2); ALT/SGPT 25 U/L (12-78); BILIRUBIN,DIRECT < 0.1 MG/DL (0.0-0.2); BILIRUBIN,TOTAL 0.4 MG/DL (0.2-1.0); BLOOD UREA NITROGEN 15 MG/DL (7-18); CALCIUM LEVEL 8.7 MG/DL (8.5-10.1); CARBON DIOXIDE LEVEL 27 MEQ/L (21-32); CHLORIDE LEVEL 108 MEQ/L (98-107); CREATININE FOR GFR 1.33 MG/DL (0.70-1.30); ETHYL ALCOHOL (ETHANOL) < 0.003 % (0.000-0.010); GLOMERULAR FILTRATION RATE > 60.0 (>60); GLUCOSE, FASTING 100 MG/DL (70-100); SALICYLATE LEVEL < 1.7 MG/DL (5.0-30.0); SODIUM LEVEL 141 MEQ/L (136-145); TOTAL PROTEIN 7.1 GM/DL (6.4-8.2)
[2019-03-20 13:06] VITALS: BP 132/83
== END 2019-03-20 13:08 | disposition home or self-care (01) ==
LOC: M ED 10:26
DX: F32.9 Major depressive disorder, single episode, unspecified (principal); Z63.0 Problems in relationship with spouse or partner; Z63.5 Disruption of family by separation and divorce; Z79.51 Long term (current) use of inhaled steroids; Z79.899 Other long term (current) drug therapy
CPT/HCPCS: 80048; 80076; 80307; 84443; 85027; 99284; G0480

== ENCOUNTER 2019-08-06 17:45 | Emergency (ER) | payer OTHER ==
[~2019-08-06] VITALS: Ht 188 cm; Wt 111.4 kg
[2019-08-06] MEDS ORDERED: NS 1,000 ML IV ONE (18:30)
[2019-08-06] MEDS ORDERED: methylPREDNISolone INJ 125 MG/2 ML VIAL (J2930) IV ONE (18:30)
[2019-08-06 20:15] VITALS: BP 128/75
[2019-08-06] MEDS ORDERED: PRED20TA PO (20:18)
[2019-08-06] MEDS ORDERED: BENA25CA4 PO (20:18)
== END 2019-08-06 20:33 | disposition home or self-care (01) ==
LOC: EDBD 17:45 → M ED 17:45
DX: L50.9 Urticaria, unspecified (principal)
CPT/HCPCS: 94760; 96361; 96374; 99284; J2930

== ENCOUNTER 2021-09-21 11:55 | Emergency (ER) | payer OTHER ==
[~2021-09-21] VITALS: Ht 188 cm; Wt 125.0 kg
[~2021-09-21 11:55] MED LIST changes: +BENA25CA4 PO; +PRED20TA PO
[2021-09-21] MEDS ORDERED: BACITRACIN OINTMENT 30GM TUBE TOP ONE (13:30)
[2021-09-21] MEDS ORDERED: LIDOCAINE 2% MDV 20ML VIAL SC ONE (13:30)
[2021-09-21 14:24] VITALS: BP 120/74
== END 2021-09-21 14:28 | disposition home or self-care (01) ==
LOC: M ED 11:55
DX: S61.216A Laceration without foreign body of right little finger without damage to nail, initial encounter (principal); W26.0XXA Contact with knife, initial encounter; Y92.010 Kitchen of single-family (private) house as the place of occurrence of the external cause

== ENCOUNTER 2022-04-02 06:40 | Emergency (ER) | payer OTHER ==
[~2022-04-02] VITALS: Ht 188 cm; Wt 97.7 kg
[~2022-04-02 06:40] MED LIST changes: -MAXA10TA14 PO; +RIZA10TA64 PO
[2022-04-02] MEDS ORDERED: DIPH50CA PO (06:51)
[2022-04-02] MEDS ORDERED: ALBUTEROL SULFATE 2.5MG/0.5ML INH NEB SOLN NEB STA (07:57)
[2022-04-02] MEDS ORDERED: EPINEPHrine INJ 1 MG/ML 1ML AMP IM STA (07:57)
[2022-04-02] MEDS ORDERED: methylPREDNISolone 125MG 2ML VIAL IV ONE (08:00)
[2022-04-02] MEDS ORDERED: FAMOTIDINE 20MG/2ML VIAL IVP ONE (08:00)
[2022-04-02 08:44] LABS: BASO % 0.4 % (0.0-1.0); EOS # 0.2 10^3/uL (0.0-0.5); EOS % 2.1 % (0.0-3.0); HEMATOCRIT 38.8 % (42.0-52.0); HEMOGLOBIN 12.7 g/dl (13.5-17.5); LYMPH # 2.6 10^3/uL (1.5-5.0); LYMPH % 36.6 % (24.0-44.0); MEAN CORPUSCULAR HEMOGLOBIN 30.5 pg (27.0-33.0); MEAN CORPUSCULAR HGB CONC 32.7 g/dl (32.0-36.5); MONO # 0.6 10^3/uL (0.0-0.8); MONO % 8.7 % (2.0-8.0); NEUTROPHILS # 3.6 10^3/uL (1.5-8.5); NEUTROPHILS % 51.9 % (36.0-66.0); PLATELET COUNT, AUTOMATED 202 10^3/uL (150-450); RED BLOOD COUNT 4.17 10^6/uL (4.30-6.10)
[2022-04-02 09:51] LABS: ALBUMIN 3.7 G/DL (3.2-5.2); ALKALINE PHOSPHATASE 79 U/L (46-116); ALT/SGPT 17 U/L (7.0-40); AST/SGOT 28 U/L (<34); BILIRUBIN,DIRECT 0.1 MG/DL (<0.4); BILIRUBIN,TOTAL 0.6 MG/DL (0.3-1.2); BLOOD UREA NITROGEN 15 MG/DL (9-23); CALCIUM LEVEL 8.7 MG/DL (8.5-10.1); CARBON DIOXIDE LEVEL 30 MMOL/L (20-31); CHLORIDE LEVEL 105 MMOL/L (98-107); CREATININE FOR GFR 1.18 MG/DL (0.70-1.30); GLOMERULAR FILTRATION RATE > 60.0 (>60); GLUCOSE, FASTING 72 MG/DL (60-100); POTASSIUM SERUM 4.2 MMOL/L (3.5-5.1); SODIUM LEVEL 140 MMOL/L (136-145); TOTAL PROTEIN 6.7 G/DL (5.7-8.2)
[2022-04-02 10:15] VITALS: BP 107/66
[2022-04-02] MEDS ORDERED: PRED20TA PO (10:16)
[2022-04-02] MEDS ORDERED: PEPC1TAB5 PO (10:16)
[2022-04-02] MEDS ORDERED: CETI10CH PO (10:16)
== END 2022-04-02 10:32 | disposition home or self-care (01) ==
LOC: EDBD 06:40 → M ED 06:40
DX: T78.09XA Anaphylactic reaction due to other food products, initial encounter (principal); D64.9 Anemia, unspecified; Z79.899 Other long term (current) drug therapy
CPT/HCPCS: 80048; 80076; 85025; 94640; 96372; 96374; 96375; 99284; J0171; J2930; S0028

== ENCOUNTER 2023-10-09 14:42 | Emergency (ER) | payer OTHER ==
[~2023-10-09] VITALS: Ht 188 cm; Wt 123.6 kg
[~2023-10-09 14:42] MED LIST changes: +CETI10CH PO; +DIPH50CA PO; +ONDA-282 PO; -ONDA4TAB6 PO; +PEPC1TAB5 PO
[2023-10-09 17:48] VITALS: BP 128/89; TEMP 97.5; O2SAT 100
== END 2023-10-09 17:51 | disposition home or self-care (01) ==
LOC: M ED 14:42
DX: U07.1 COVID-19 (principal); G43.909 Migraine, unspecified, not intractable, without status migrainosus; Z79.52 Long term (current) use of systemic steroids; Z79.899 Other long term (current) drug therapy